=== PATIENT | female | born 1955 | race Caucasian/White ===

== ENCOUNTER → 2017-01-04 | Outpatient (CLI) | payer BC ==
--- NOTE | 2017-01-04 15:15 | BD ---
EXAMINATION TYPE: MG DEXA axial skeleton. DATE OF EXAM: 01/04/2017 COMPARISON: NONE CLINICAL HISTORY: M89.9 Disorder of bone Height: 60 IN Weight: 141 LBS FRAX RISK QUESTIONS: Alcohol (3 or more units per day): NO Family History (Parent hip fracture): NO Glucocorticoids (More than 3mos): NO (Ex: prednisone, prednisolone, methylprednisolone, dexamethasone, and hydrocortisone). History of Fracture in Adulthood: NO Secondary Osteoporosis: 1. Type 1 Diabetes: NO 2. Hyperthyroidism: NO 3. Menopause before 45: NO 4. Malnutrition: NO 5. Chronic liver disease: NO Rheumatoid Arthritis: NO Current Tobacco Use: NO RISK FACTORS HISTORY OF: Surgery to Hip(left): YES When: 2010 Active: YES Postmenopausal woman: AGE 52 MEDICATIONS: Additional Medications: CALCIUM, VIT D, PRILOSEC, POTASSIUM, DONNIE 128,TRAMADOL, AMOXICILLIN, LODINE, LASIX, PVC MEDICATION, LIPITOR EXAM MEASUREMENTS: Bone mineral densitometry was performed using the [email or web address] System. Bone mineral density as measured about the Lumbar spine is: ----- L1-L4(G/cm2): 1.057 T Score Values are as follows: ----- L2: -1.1 ----- L3: -1.3 ----- L4: -1.4 ----- L1-L4: -1.0 Bone mineral density has: Decreased -0.2% since study of: 04/03/2014 Bone mineral density about the R hip (g/cm2): 0.779 T Score values are as follows: -----R Neck: -1.9 -----R Total: -1.7 Bone mineral density has: Decreased -5.0% since study of: 04/03/2014 IMPRESSION: Osteopenia. NOTE: T-SCORE=SD OF THE YOUNG ADULT MEAN.
--- NOTE | 2017-01-05 11:16 | MM ---
Reason for exam: screening (asymptomatic). Last mammogram was performed 1 year and 1 month ago. History: Patient is postmenopausal and had first child at age 35. Physical Findings: A clinical breast exam by your physician is recommended on an annual basis and results should be correlated with mammographic findings. MG 3D Screening Mammo W/Cad Bilateral CC and MLO view(s) were taken. Prior study comparison: December 14, 2015, bilateral MG 3d screening mammo w/cad. April 03, 2014, bilateral MG screening mammo w CAD. The breast tissue is heterogeneously dense. This may lower the sensitivity of mammography. There is no discrete abnormality. ASSESSMENT: Negative, BI-RAD 1 RECOMMENDATION: Routine screening mammogram of both breasts in 1 year.
== END | disposition home or self-care (01) ==
LOC: RADBDWWP 14:26
PROVIDERS: ATTEND Obstetrics & Gynecology
DX: Z12.31 Encounter for screening mammogram for malignant neoplasm of breast (principal); M85.88 Other specified disorders of bone density and structure, other site
CPT/HCPCS: 77080; 77063; G0202

== ENCOUNTER → 2018-02-01 | Outpatient (CLI) | payer BC ==
--- NOTE | 2018-02-05 08:55 | MM ---
Reason for exam: screening (asymptomatic). Last mammogram was performed 1 year and 1 month ago. History: Patient is postmenopausal and had first child at age 35. Physical Findings: A clinical breast exam by your physician is recommended on an annual basis and results should be correlated with mammographic findings. MG 3D Screening Mammo W/Cad Bilateral CC and MLO view(s) were taken. Prior study comparison: January 04, 2017, bilateral MG 3d screening mammo w/cad. December 14, 2015, bilateral MG 3d screening mammo w/cad. The breast tissue is heterogeneously dense. This may lower the sensitivity of mammography. No significant changes when compared with prior studies. ASSESSMENT: Benign, BI-RAD 2 RECOMMENDATION: Routine screening mammogram of both breasts in 1 year.
== END | disposition home or self-care (01) ==
LOC: RADMAMWWP 13:03
PROVIDERS: ATTEND Obstetrics & Gynecology
DX: Z12.31 Encounter for screening mammogram for malignant neoplasm of breast (principal)
CPT/HCPCS: 77063; 77067

== ENCOUNTER → 2018-07-04 | Outpatient (CLI) | payer OTHER ==
[2018-07-04 08:45] LABS: HCT 37.5 % (34.0-46.0); HGB 12.7 gm/dL (11.4-16.0); MCH 31.8 pg (25.0-35.0); MCHC 33.8 g/dL (31.0-37.0); Mean Platelet Volume 8.1; Platelet Count 180 k/uL (150-450); RBC 3.99 m/uL (3.80-5.40); RDW 13.5 % (11.5-15.5); WBC 6.9 k/uL (3.8-10.6)
[2018-07-04 08:48] LABS: INR 0.9 (<1.2)
[2018-07-04 08:57] LABS: Anion Gap 8 mmol/L; Blood Urea Nitrogen 28 mg/dL (7-17); Calcium 9.3 mg/dL (8.4-10.2); Carbon Dioxide 26 mmol/L (22-30); Chloride 106 mmol/L (98-107); Glucose 155 mg/dL (74-99); Potassium 3.7 mmol/L (3.5-5.1); Sodium 140 mmol/L (137-145)
== END | disposition home or self-care (01) ==
LOC: LABWHC1 08:07
PROVIDERS: ATTEND Internal Medicine
DX: I49.3 Ventricular premature depolarization (principal)
CPT/HCPCS: 36415; 80048; 85027; 85610

== ENCOUNTER 2018-12-21 07:58 | Day surgery (SDC) | payer OTHER ==
[2018-12-18 09:31] VITALS: BMI 25.4
[~2018-12-21 07:58] MED LIST: LIDOCAINE 1% 20 ML VIAL (10MG/ML) FOR IV START INTRADERMA PRN
[2018-12-21] MEDS: LACTATED RINGERS 1,000 ML IV SCH ×2 (08:15→08:20)
[2018-12-21 08:23] VITALS: RESP 18; TEMP 98.5
[2018-12-21] MEDS ORDERED: LIDOCAINE 1% INJ 10MG/ML (20 ML MDV) ONE (08:57)
[2018-12-21] MEDS ORDERED: PROPOFOL 10 MG/ML 20 ML VIAL IV ONE (08:57)
--- NOTE | 2018-12-21 09:03 | P.GSHP ---
History of Present Illness H&P Date: 12/21/18 Chief Complaint: Change in bowel habits Patient comes a hospital today with complaints of change in bowel habits. Patient states since earlier this year she has been constipated. Require senna twice daily. No rectal bleeding or melena. No pain. Last colonoscopy 2012. Past Medical History Past Medical History: GERD/Reflux, Hyperlipidemia, Hypertension, Osteoarthritis (OA) Additional Past Medical History / Comment(s): MIGRAINES, CATARACTS, CORNEAL DX(FUSCH DZ) History of Any Multi-Drug Resistant Organisms: None Reported Past Surgical History: Joint Replacement Additional Past Surgical History / Comment(s): LEFT HIP REPLACEMENT, PARTIAL THYROIDECTOMY(LT SIDE ) HAD BENIGN TUMOR, ECTOPIC , COLONOSCOPY, Past Anesthesia/Blood Transfusion Reactions: Motion Sickness Smoking Status: Former smoker - Past Family History Father Family Medical History: Cancer Medications and Allergies Home Medications Medication Instructions Recorded Confirmed Type Etodolac [Lodine] 400 mg PO DAILY 10/24/13 12/21/18 History Atorvastatin [Lipitor] 40 mg PO DAILY 12/18/18 12/21/18 History Ergocalciferol (Vitamin D2) 50,000 unit PO Q14D 12/18/18 12/21/18 History [Vitamin D2] Furosemide [Lasix] 40 mg PO DAILY 12/18/18 12/21/18 History Losartan [Cozaar] 50 mg PO DAILY 12/18/18 12/21/18 History Omeprazole 20 mg PO DAILY 12/18/18 12/21/18 History Potassium Chloride 10 meq PO DAILY 12/18/18 12/21/18 History Sennosides/Docusate Sodium 1 - 2 cap PO DAILY 12/18/18 12/21/18 History [Senna-S Laxative Tablet] Verapamil HCl [Verapamil ER] 120 mg PO DAILY 12/18/18 12/21/18 History Allergies Allergy/AdvReac Type Severity Reaction Status Date / Time amlodipine besylate Allergy Swelling Verified 12/21/18 08:10 [From Norvasc] methylprednisolone Allergy Unknown Verified 12/21/18 08:10 [From Medrol] Sulfa (Sulfonamide Allergy Swelling Verified 12/21/18 08:10 Antibiotics) Surgical - Exam Vital Signs Temp Pulse Resp BP Pulse Ox 98.5 F 80 18 149/69 96 12/21/18 08:20 12/21/18 08:20 12/21/18 08:20 12/21/18 08:20 12/21/18 08:20 Physical exam: General: Well-developed, well-nourished HEENT: Normocephalic, sclerae nonicteric Abdomen: Nontender, nondistended Extremities: No edema Neuro: Alert and oriented Assessment and Plan (1) Change in bowel habits Narrative/Plan: Will proceed with colonoscopy at this time. Current Visit: Yes Status: Acute Code(s): R19.4 - CHANGE IN BOWEL HABIT SNOMED Code(s): 955864365
--- NOTE | 2018-12-21 09:23 | P.PCN ---
Date of Procedure: 12/21/18 Procedure(s) Performed: PREOPERATIVE DIAGNOSIS: Change in bowel habits POSTOPERATIVE DIAGNOSIS: Suboptimal prep, diverticulosis PROCEDURE: Colonoscopy ANESTHESIA: MAC SURGEON: Carmelo Berry M.D. SPECIMENS: None ENDOSCOPIC PROCEDURE: The patient was placed on the endoscopy table in the left decubitus position. The Olympus colonoscope was inserted into the anus and passed under direct visualization to the base of the cecum. The appendiceal orifice was visualized. From that point the scope was slowly withdrawn inspecting all surfaces carefully. There were no neoplastic inflammatory or polypoid lesions throughout the cecum, ascending, transverse, descending, sigmoid and rectum. There was mild left-sided diverticulosis noted. The patient's prep was somewhat suboptimal with retained liquid stool containing into particulate matter that we could not clear all of the visualized stool. Portions of the mucosal surfaces were not well seen. Digital rectal examination was normal. The patient was taken to the recovery room in stable condition per anesthesia guidelines. RECOMMENDATIONS: Increase fiber. Follow-up colonoscopy in 10 years.
[2018-12-21 09:44] VITALS: BP 145/83; PULSE 60
== END 2018-12-21 09:58 | disposition home or self-care (01) ==
LOC: ORWHC2ENDO 07:58
PROVIDERS: ATTEND Surgery
DX: K57.30 Diverticulosis of large intestine without perforation or abscess without bleeding (principal); I10 Essential (primary) hypertension; E78.5 Hyperlipidemia, unspecified; K21.9 Gastro-esophageal reflux disease without esophagitis; G43.909 Migraine, unspecified, not intractable, without status migrainosus; M19.90 Unspecified osteoarthritis, unspecified site; E89.0 Postprocedural hypothyroidism; H26.9 Unspecified cataract; H18.51 Endothelial corneal dystrophy; Z87.891 Personal history of nicotine dependence; Z79.1 Long term (current) use of non-steroidal anti-inflammatories (NSAID); Z79.899 Other long term (current) drug therapy; Z96.642 Presence of left artificial hip joint; Z88.2 Allergy status to sulfonamides; Z88.8 Allergy status to other drugs, medicaments and biological substances; Z86.018 Personal history of other benign neoplasm; Z98.890 Other specified postprocedural states; Z80.9 Family history of malignant neoplasm, unspecified
CPT/HCPCS: 45378; J2001; J2704

== ENCOUNTER → 2019-02-07 | Outpatient (CLI) | payer OTHER ==
--- NOTE | 2019-02-07 16:11 | US ---
EXAMINATION TYPE: US transvaginal DATE OF EXAM: 02/07/2019 COMPARISON: NONE CLINICAL HISTORY: N81.4 Uterovaginal prolapse, unspecified. TECHNIQUE: TV ordered tv only. Date of LMP: age 53 EXAM MEASUREMENTS: Uterus: 4.1 x1.9 x3.3 cm Endometrial Stripe: 0.2 cm Right Ovary: overlying bowel gas Left Ovary: overlying bowel gas 1. Uterus: anteverted 2. Endometrium: wnl 3. Right Ovary: overlying bowel gas 4. Left Ovary: overlying bowel gas 5. Bilateral Adnexa: overlying bowel gas 6. Posterior cul-de-sac: small amount fluid IMPRESSION: Ovaries are not seen, partially due to overlying bowel gas and likely partially related t o atrophy. Endometrium is within normal limits. Uterine prolapse and not discernible on this transvag inal technique. Trace amount of free fluid is likely physiologic.
== END | disposition home or self-care (01) ==
LOC: RADUSWWP 15:31
PROVIDERS: ATTEND Obstetrics & Gynecology
DX: N81.4 Uterovaginal prolapse, unspecified (principal)
CPT/HCPCS: 76830

== ENCOUNTER → 2019-03-29 | Outpatient (CLI) | payer OTHER ==
[2019-03-29 14:15] LABS: Basophils % (A) 1 %; Eosinophils # (A) 0.2 k/uL (0-0.7); Eosinophils % (A) 3 %; HCT 39.1 % (34.0-46.0); HGB 12.9 gm/dL (11.4-16.0); Lymphocytes # (A) 1.1 k/uL (1.0-4.8); Lymphocytes % (A) 23 %; MCH 30.4 pg (25.0-35.0); Mean Platelet Volume 7.7; Monocytes # (A) 0.2 k/uL (0-1.0); Monocytes % (A) 5 %; Neutrophils # (A) 3.1 k/uL (1.3-7.7); Neutrophils % (A) 66 %; Platelet Count 180 k/uL (150-450); RBC 4.25 m/uL (3.80-5.40); WBC 4.8 k/uL (3.8-10.6)
[2019-03-29 14:31] LABS: African American GFR (CKD) >90 (>60 ml/min/1.73 sqM); Anion Gap 6 mmol/L; Blood Urea Nitrogen 21 mg/dL (7-17); Calcium 9.6 mg/dL (8.4-10.2); Carbon Dioxide 30 mmol/L (22-30); Chloride 104 mmol/L (98-107); Glucose 164 mg/dL (74-99); Non-African American GFR(CKD) >90 (>60 ml/min/1.73 sqM); Potassium 3.7 mmol/L (3.5-5.1); Sodium 140 mmol/L (137-145)
== END | disposition home or self-care (01) ==
LOC: LABPAT 12:38
PROVIDERS: ATTEND Obstetrics & Gynecology
DX: Z01.812 Encounter for preprocedural laboratory examination (principal)
CPT/HCPCS: 80048; 85025; 93005

== ENCOUNTER 2019-04-08 05:38 | Inpatient (IN) | payer OTHER ==
[2019-04-03 15:27] VITALS: BMI 25.6
--- NOTE | 2019-04-07 17:19 | P.HPOB ---
History of Present Illness H&P Date: 04/07/19 Chief Complaint: Uterovaginal prolapse This is a 63 y.o. female, 3, para 1, who presents for total vaginal hysterectomy with anterior and posterior vaginal colporrhaphy for symptomatic uterine prolapse with cystocele and rectocele. She has been evaluated by urology and it was determined that she does not need a sling. She complains of vaginal and perineal pressure, urinary hesitancy and pelvic pain. She has been using a pessary, but does experience some leakage with it in. She also notices some constipation. Her symptoms are exacerbated by heavy lifting and prolonged standing. She wants definitive surgical treatment. OB Hx: . History of 1 vaginal delivery, 1 ectopic , and 1 miscarriage. Wet Finisher Hx: No history of STDs. 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 Review of Systems Constitutional: Denies chills, Denies fever Eyes: denies blurred vision, denies pain Ears: bilateral: decreased hearing Ears, nose, mouth and throat: Denies headache, Denies sore throat Cardiovascular: Reports palpitations (Occ) Respiratory: Denies cough Gastrointestinal: Denies abdominal pain, Denies diarrhea, Denies nausea, Denies vomiting Genitourinary: Reports dysuria, Reports pelvic pain, Reports prolapse symptoms, Reports urgency Menstruation: Reports postmenopausal Musculoskeletal: Reports low back pain, Reports myalgias Integumentary: Denies pruritus, Denies rash Neurological: Denies numbness, Denies weakness Endocrine: Reports flushing, Denies fatigue, Denies weight change Past Medical History Past Medical History: Eye Disorder, GERD/Reflux, Hyperlipidemia, Hypertension, Osteoarthritis (OA) Additional Past Medical History / Comment(s): PAST HX MIGRAINES, MELIZA CATARACTS, CORNEAL DX (FUSCH DYSTROPHY) hx of PVC's History of Any Multi-Drug Resistant Organisms: None Reported Past Surgical History: Cardiac Ablation, Joint Replacement Additional Past Surgical History / Comment(s): states cardiac ablation failed for PVC's,LEFT HIP REPLACEMENT, PARTIAL THYROIDECTOMY(LT SIDE) r/t BENIGN TUMOR, ECTOPIC , COLONOSCOPY, Past Anesthesia/Blood Transfusion Reactions: No Reported Reaction Past Psychological History: No Psychological Hx Reported Smoking Status: Former smoker Past Alcohol Use History: Occasional Past Drug Use History: None Reported - Past Family History Father Family Medical History: Cancer Medications and Allergies Home Medications Medication Instructions Recorded Confirmed Type Etodolac [Lodine] 400 mg PO DAILY 10/24/13 04/08/19 History Atorvastatin [Lipitor] 40 mg PO DAILY 12/18/18 04/08/19 History Ergocalciferol (Vitamin D2) 50,000 unit PO Q14D 12/18/18 04/08/19 History [Vitamin D2] Furosemide [Lasix] 40 mg PO DAILY 12/18/18 04/08/19 History Losartan [Cozaar] 50 mg PO QAM 12/18/18 04/08/19 History Omeprazole 20 mg PO DAILY 12/18/18 04/08/19 History Potassium Chloride 20 meq PO DAILY 12/18/18 04/08/19 History Sennosides/Docusate Sodium 1 - 2 cap PO DAILY PRN 12/18/18 04/08/19 History [Senna-S Laxative Tablet] Verapamil HCl [Verapamil ER] 120 mg PO HS 12/18/18 04/08/19 History Allergies Allergy/AdvReac Type Severity Reaction Status Date / Time amlodipine besylate Allergy Swelling Verified 04/08/19 06:27 [From Norvasc] methylprednisolone Allergy Unknown Verified 04/08/19 06:27 [From Medrol] Sulfa (Sulfonamide Allergy Swelling Verified 04/08/19 06:27 Antibiotics) Exam Osteopathic Statement: *. No significant issues noted on an osteopathic structural exam other than those noted in the History and Physical/Consult. HEENT: within normal limits Heart: regular rate and rhythm Lungs: clear to auscultation bilateral Abdomen: soft, non-tender Pelvic: uterus midposition with complete eversion, protruding out of the vagina slightly. Grade 3 cystocele and grade 2 rectocele is noted. Extremities: negative Homans. Results Comments: Pelvic US showed uterus measuring 4.1 x 9 x 3.3 cm with endometrial stripe of 0.2 cm. Neither ovary is visualized. Assessment and Plan (1) Complete uterine prolapse with prolapse of anterior vaginal wall Current Visit: No Status: Acute Code(s): N81.3 - COMPLETE UTEROVAGINAL PROLAPSE SNOMED Code(s): 820918563 (2) Rectocele Current Visit: No Status: Acute Code(s): N81.6 - RECTOCELE SNOMED Code(s): 701108429 Plan: Proceed with total vaginal hysterectomy with anterior and posterior vaginal colporrhaphy, possible total abdominal hysterectomy with bilateral salpingooophorectomy. I have discussed the risks, benefits, and alternative therapies for the above- mentioned procedure and for both sedation/anesthesia as well as necessary blood products administration, if indicated, as they pertain to this patient. The patient has indicated her understanding and acceptance of the risks and procedures discussed.
[2019-04-08] MEDS ORDERED: LIDOCAINE 1% 20 ML VIAL (10MG/ML) FOR IV START INTRADERMA PRN (05:56)
[2019-04-08] MEDS ORDERED: SCOPOLAMINE 1.5MG/72HR PATCH TRANSDERM ONE (05:56)
[2019-04-08] MEDS ORDERED: HYDROmorphone 0.5 MG/0.5 ML SYRINGE IVP PRN (05:56)
[2019-04-08 06:45] LABS: Glucose,Whole Blood 100 mg/dL (75-99)
[2019-04-08] MEDS: LACTATED RINGERS 1,000 ML IV SCH ×2 (06:50→10:51)
[2019-04-08] MEDS: ONDANSETRON 4 MG/2 ML VIAL IVP ONE ×2 (06:52→09:55)
[2019-04-08] MEDS ORDERED: MORPHINE SULFATE (PF) 0.3 MG/0.3 ML SYR ONE (07:32)
[2019-04-08] MEDS ORDERED: LIDOCAINE 1% INJ 10MG/ML (20 ML MDV) ONE (07:32)
[2019-04-08] MEDS ORDERED: PROPOFOL 10 MG/ML 20 ML VIAL IV ONE (07:32)
[2019-04-08] MEDS ORDERED: MIDAZOLAM 2 MG/2 ML VIAL ONE (07:32)
[2019-04-08] MEDS ORDERED: fentaNYL (PF) 50 MCG/ML 2 ML AMP ONE (07:32)
[2019-04-08] MEDS ORDERED: NALBUPHINE 10 MG/ML (1 ML AMP) IV PRN (08:04)
[2019-04-08] MEDS ORDERED: MORPHINE SULFATE 4 MG/ML SYRINGE IVP PRN (08:04)
[2019-04-08] MEDS ORDERED: diphenhydrAMINE 50 MG/ML 1 ML VIAL IVP PRN ×2 (08:04→10:39)
[2019-04-08] MEDS ORDERED: NALOXONE 0.4 MG/ML 1 ML VIAL IV PRN (08:04)
[2019-04-08] MEDS ORDERED: BACITRACIN 500 UNIT/GM OINT 28.4 GM TUBE TOPICAL ONE (08:10)
[2019-04-08] MEDS ORDERED: EPINEPHrine 1 MG/ML 1 ML AMP IV ONE ×2 (08:11→08:50)
[2019-04-08] MEDS ORDERED: LACTATED RINGERS 1,000 ML IV ONE ×2 (08:26)
--- NOTE | 2019-04-08 08:59 | P.OP ---
Date of Procedure: 04/08/19 Preoperative Diagnosis: Uterine prolapse with cystocele and rectocele Postoperative Diagnosis: Same Procedure(s) Performed: Total vaginal hysterectomy with anterior and posterior vaginal colporrhaphy Anesthesia: spinal (Duramorph) Surgeon: Gerda Hartley Pressurizer #1: Dane Abarca Estimated Blood Loss (ml): 20 Pathology: other (Uterus with cervix, vaginal mucosa) Condition: stable Disposition: floor Indications for Procedure: This is a 63 y.o. female, 3, para 1, who presents for total vaginal hysterectomy with anterior and posterior vaginal colporrhaphy for symptomatic uterine prolapse with cystocele and rectocele. She has been evaluated by urology and it was determined that she does not need a sling. She complains of vaginal and perineal pressure, urinary hesitancy and pelvic pain. She has been using a pessary, but does experience some leakage with it in. She also notices some constipation. Her symptoms are exacerbated by heavy lifting and prolonged standing. She wants definitive surgical treatment. Operative Findings: Grade 3 uterine prolapse and cystocele are noted. Grade 2 rectocele is noted. Description of Procedure: The patient is taken the operating room where she is placed in the dorsal lithotomy position. She is prepped and draped in the normal sterile fashion. Next a weighted speculum was placed in the patient's vagina and a right angle retractor was used to visualize the cervix. The anterior lip of the cervix is grasped with a single-tooth tenaculum. Next the cervix was circumferentially injected with one amp of epinephrine to 150 mL of normal saline. Next the cervix was circumscribed with a scalpel. The vaginal mucosa was pushed away from the cervix with a sponge. Next the uterosacral ligaments are clamped on either side with a Jacky clamp, cut with Galo scissors, and then sutured with 0 Vicryl suture in a Jacky transfixion stitch and then held on either side with a straight hemostat. Next the posterior peritoneal reflection was identified and entered sharply with Galo scissors. The edges of the vaginal mucosa was then tagged with 0 Vicryl suture and held with a curved hemostat for identification. Next a longbilled weighted speculum was placed through the posterior peritoneal reflection. Next the cardinal ligaments were clamped on either side with Jacky clamps, cut with Galo scissors, and then sutured with 0 Vicryl suture in Jacky transfixion stitches and cut. Next the vesicouterine peritoneum reflection is identified and entered sharply with Metzenbaum scissors. A right angle bladder retractor is then used to retract the bladder. The uterine arteries are clamped on either side with Jacky clamps, cut with Galo scissors, and then sutured with 0 Vicryl suture in Jacky transfixion stitches. The round ligament is also clamped on either side with a Jacky clamp, cut with Galo scissors, and sutured with 0 Vicryl suture in Jacky transfixion stitches. Next the uterine ovarian ligament and tube were clamped on either side with a Jacky clamp, cut with Galo scissors, and then sutured with 0 Vicryl suture in a [id number] stitch, flashed, and then free tied with another suture of 0 Vicryl suture. These pedicles were held with a straight Dai for identification. The uterus is removed from the field. Excellent hemostasis is noted. Next the peritoneum is closed with 0 Vicryl suture in a pursestring fashion incorporating all the held ligaments. Neither ovary was visualized prior to closing the vaginal cuff area. Both tubes are visualized and appeared normal. Next the uterine ovarian ligame nts are tied together in the middle and cut. Next attention was turned to the cystocele repair. The edges of the vaginal mucosa are held with 2 Allis clamps. Next injection of the same epinephrine solution is injected underneath the mucosa upwards towards the urethra. Metzenbaum scissors were used to dissect underneath the vaginal mucosa and cut along the way up to just below the urethra. Sharp and blunt dissection are used to dissect the bladder away from the vaginal mucosa. Once the bladder is freed, the cystocele is reduced with 0 Vicryl suture in [id number] stitches on either side of the cystocele. Next the edges of the vaginal mucosa are trimmed with Metzenbaum scissors. Next the vaginal mucosa is sutured with 0 Vicryl suture in a running locked fashion incorporating the vaginal cuff. The uterosacral ligaments were also tied together in the midline prior to completely closing the vaginal cuff. Excellent hemostasis is noted. Next attention was turned to the posterior repair. 2 Allis clamps are used to grasp the introitus at the 4 and 8 o'clock position. Next the same injection solution of epinephrine was injected underneath the vaginal mucosa upwards towards the vaginal cuff. The scalpel was used to incise a triangle her piece of perineum mucosa between the 2 Allis clamps. Next Metzenbaum scissors were used to dissect underneath the vaginal mucosa upwards towards the vaginal cuff. The rectocele was then freed from the vaginal mucosa with sharp and blunt dissection. The rectocele was then reduced with 0 Vicryl suture in interrupted [id number] stitches. Next the edges of the vaginal mucosa are trimmed. The vaginal mucosa was then sutured with 0 Vicryl suture in a running locked fashion up to the introitus and then brought underneath the sk in and a whipped fashion to the apex on the perineum and then in a subcuticular fashion on the perineum all the way up to the introitus and tied. The Cueto catheter is inserted and clear urine is noted. Next the vagina is packed with one-inch iodoform gauze with bacitracin ointment. All sponge and needle counts are correct and the patient is then taken to recovery room in stable condition.
[2019-04-08] MEDS: KETOROLAC 30 MG/ML 1 ML VIAL IVP PRN ×2 (09:18→16:19)
[2019-04-08] MEDS ORDERED: ZOLPIDEM 5 MG TAB PO PRN (10:39)
[2019-04-08] MEDS ORDERED: SIMETHICONE 80 MG CHEWABLE PO PRN (10:39)
[2019-04-08] MEDS ORDERED: ONDANSETRON 4 MG/2 ML VIAL IVP PRN (10:39)
[2019-04-08] MEDS ORDERED: IBUPROFEN 600 MG TAB PO PRN (10:39)
[2019-04-08] MEDS: ATORVASTATIN 40 MG TAB PO SCH (11:44)
[2019-04-08] MEDS: LOSARTAN 50 MG TAB PO SCH (11:45)
[2019-04-08] MEDS: POTASSIUM CHLORIDE ER 20 MEQ TAB.ER PO SCH (11:45)
[2019-04-08] MEDS: FUROSEMIDE 40 MG TAB PO SCH (11:45)
[2019-04-08] MEDS: PANTOPRAZOLE 40 MG TABLET PO SCH (11:45)
[2019-04-08] MEDS: SENNOSIDES-DOCUSATE SODIUM 1 EACH TAB PO SCH ×2 (11:46→19:55)
[2019-04-08] MEDS: METOCLOPRAMIDE 5 MG/ML 2 ML VIAL IVP PRN ×2 (11:59→19:55)
[2019-04-08] MEDS ORDERED: VERAPAMIL SR 120 MG TABLET.ER PO SCH (21:00)
[2019-04-09] MEDS: KETOROLAC 30 MG/ML 1 ML VIAL IVP PRN ×2 (02:56→08:56)
[2019-04-09] MEDS ORDERED: ACETAMINOPHEN TAB 325 MG TAB PO PRN (07:40)
[2019-04-09 08:04] LABS: Basophils % (A) 1 %; Eosinophils # (A) 0.1 k/uL (0-0.7); Eosinophils % (A) 2 %; HCT 32.2 % (34.0-46.0); HGB 10.6 gm/dL (11.4-16.0); Lymphocytes # (A) 1.6 k/uL (1.0-4.8); Lymphocytes % (A) 24 %; MCH 31.3 pg (25.0-35.0); MCHC 33.1 g/dL (31.0-37.0); MCV 94.8 fL (80.0-100.0); Mean Platelet Volume 8.3; Monocytes # (A) 0.3 k/uL (0-1.0); Monocytes % (A) 4 %; Neutrophils # (A) 4.7 k/uL (1.3-7.7); Neutrophils % (A) 68 %; Platelet Count 142 k/uL (150-450); RDW 13.2 % (11.5-15.5); WBC 6.8 k/uL (3.8-10.6)
[2019-04-09] MEDS: LOSARTAN 50 MG TAB PO SCH (08:18)
[2019-04-09] MEDS: FUROSEMIDE 40 MG TAB PO SCH (08:18)
[2019-04-09] MEDS: PANTOPRAZOLE 40 MG TABLET PO SCH (08:41)
[2019-04-09] MEDS: ATORVASTATIN 40 MG TAB PO SCH (08:41)
[2019-04-09] MEDS: POTASSIUM CHLORIDE ER 20 MEQ TAB.ER PO SCH (08:41)
[2019-04-09] MEDS: SENNOSIDES-DOCUSATE SODIUM 1 EACH TAB PO SCH (08:55)
--- NOTE | 2019-04-09 08:59 | P.DS ---
Providers Date of admission: 04/08/19 05:38 Expected date of discharge: 04/09/19 Attending physician: Gerda Hartley Primary care physician: Robert Urrutia - Discharge Diagnosis(es) (1) Complete uterine prolapse with prolapse of anterior vaginal wall Current Visit: No Status: Acute (2) Rectocele Current Visit: No Status: Acute Hospital Course: This is a 63-year-old female who underwent a total vaginal hysterectomy with anterior and posterior vaginal colporrhaphy due to uterine prolapse with cystocele and rectocele. Postoperatively she has done well. She did have some nausea and vomiting the first postoperative day but now is better. She is tolerating regular diet. She is passing flatus. She has urinated and 6 At her was removed. Pain is fairly well controlled with Toradol. She has minimal bleeding. She complains more of joint pain and then her surgical pain. Vital signs are stable. Abdomen is soft with positive bowel sounds 4. Loraine-pad shows scant serosanguineous discharge. Extremities show negative Homans. Impression is status post total vaginal hysterectomy with anterior and posterior vaginal colporrhaphy postoperative day #1. Plan is to discharge home later today. Will remove IV and switched oral ibuprofen and Tylenol as needed. She is advised to follow up in the office in 1-1/2 weeks. She is advised to call the office if she has any further questions or concerns prior to her appointment time. She is advised no lifting, tub baths, or driving. She may shower. She will be given a prescription for ibuprofen 600 mg every 6 hours as needed for pain. She is advised not to combine this with any other NSAIDs at home. Procedures: Total vaginal hysterectomy with anterior and posterior vaginal colporrhaphy on 04/08/2019 Patient Condition at Discharge: Stable Plan - Discharge Summary Discharge Rx Participant: No New Discharge Prescriptions: New Ibuprofen [Motrin] 600 mg PO Q6HR PRN #60 tab PRN Reason: Mild Discomfort Acetaminophen Tab [Tylenol] 650 mg PO Q6HR PRN tab PRN Reason: Fever And/Or Mild Pain No Action Etodolac [Lodine] 400 mg PO DAILY Losartan [Cozaar] 50 mg PO QAM Atorvastatin [Lipitor] 40 mg PO DAILY Verapamil HCl [Verapamil ER] 120 mg PO HS Sennosides/Docusate Sodium [Senna-S Laxative Tablet] 1 - 2 cap PO DAILY PRN PRN Reason: Constipation Potassium Chloride 20 meq PO DAILY Omeprazole 20 mg PO DAILY Furosemide [Lasix] 40 mg PO DAILY Ergocalciferol (Vitamin D2) [Vitamin D2] 50,000 unit PO Q14D Discharge Medication List Etodolac [Lodine] 400 mg PO DAILY 10/24/13 [History] Atorvastatin [Lipitor] 40 mg PO DAILY 12/18/18 [History] Ergocalciferol (Vitamin D2) [Vitamin D2] 50,000 unit PO Q14D 12/18/18 [History] Furosemide [Lasix] 40 mg PO DAILY 12/18/18 [History] Losartan [Cozaar] 50 mg PO QAM 12/18/18 [History] Omeprazole 20 mg PO DAILY 12/18/18 [History] Potassium Chloride 20 meq PO DAILY 12/18/18 [History] Sennosides/Docusate Sodium [Senna-S Laxative Tablet] 1 - 2 cap PO DAILY PRN 12/18/18 [History] Verapamil HCl [Verapamil ER] 120 mg PO HS 12/18/18 [History] Acetaminophen Tab [Tylenol] 650 mg PO Q6HR PRN tab 04/09/19 [Rx] Ibuprofen [Motrin] 600 mg PO Q6HR PRN #60 tab 04/09/19 [Rx] Follow up Appointment(s)/Referral(s): Gerda Hartley DO [Doctor of Osteopathic Medicine] - 10 Days Patient Instructions/Handouts: Ketorolac (By injection), Pain Management After Surgery (GEN), Vaginal Hysterectomy (DC) Activity/Diet/Wound Care/Special Instructions: activity as tolerated. May shower, but no tub baths. No heavy lifting. No driving for approximately 1 week. Discharge Disposition: HOME SELF-CARE
--- NOTE | 2019-04-09 12:22 | P.PN ---
Progress Note - Text Anesthesia POD1. Patient is status post vaginal hysterectomy under spinal with intra-thecal preservative free morphine 300 g. minimal pruritus, excellent post-op analgesia, and no headache or other complication.
[2019-04-09 12:45] VITALS: BP 98/61; PULSE 66; RESP 16; TEMP 98.7
== END 2019-04-09 13:42 | disposition home or self-care (01) | DRG 743 ==
LOC: 2ORMAIN 05:38 → 6PED 09:20
PROVIDERS: ADMIT Obstetrics & Gynecology; ATTEND Obstetrics & Gynecology
PROC: 0UTC7ZZ Resection of Cervix, Via Natural or Artificial Opening (ICD-10-PCS; 2019-04-08)
PROC: 0JQC0ZZ Repair Pelvic Region Subcutaneous Tissue and Fascia, Open Approach (ICD-10-PCS; 2019-04-08)
PROC: 0UT97ZZ Resection of Uterus, Via Natural or Artificial Opening (ICD-10-PCS; principal; 2019-04-08 07:30)
PROC: 0JQC0ZZ Repair Pelvic Region Subcutaneous Tissue and Fascia, Open Approach (ICD-10-PCS; 2019-04-08 07:30)
DX: N81.3 Complete uterovaginal prolapse (principal); K59.00 Constipation, unspecified; R39.11 Hesitancy of micturition; E78.5 Hyperlipidemia, unspecified; I10 Essential (primary) hypertension; E89.0 Postprocedural hypothyroidism; K21.9 Gastro-esophageal reflux disease without esophagitis; H26.9 Unspecified cataract; L29.9 Pruritus, unspecified; M19.90 Unspecified osteoarthritis, unspecified site; Z79.899 Other long term (current) drug therapy; Z87.891 Personal history of nicotine dependence; Z96.642 Presence of left artificial hip joint; Z86.69 Personal history of other diseases of the nervous system and sense organs; Z86.79 Personal history of other diseases of the circulatory system; Z98.890 Other specified postprocedural states; Z88.2 Allergy status to sulfonamides; Z88.8 Allergy status to other drugs, medicaments and biological substances; Z80.9 Family history of malignant neoplasm, unspecified
CPT/HCPCS: 36415; 85025; 86850; 86900; 86901; 88305

== ENCOUNTER → 2019-12-24 | Outpatient (CLI) | payer OTHER ==
--- NOTE | 2019-12-24 15:22 | BD ---
EXAMINATION TYPE: Axial Bone Density DATE OF EXAM: 12/24/2019 COMPARISON: 01/04/2017 DEXA bone scan. CLINICAL HISTORY: Postmenopausal female. Height: 60 IN Weight: 141 LBS RISK FACTORS HISTORY OF: Surgery to Hip(left): 2010 Active: YES Postmenopausal woman: AGE 53 MEDICATIONS: Additional Medications: CALCIUM, VIT D, LASIX, LIPITOR, VERAPAMIL,LODINE, POTASSIUM, PRILOSEC, LOSART AN, METAMUCIL, EXAM MEASUREMENTS: Bone mineral densitometry was performed using the [employer]. Bone mineral density as measured about the Lumbar spine is: ----- L1-L4(G/cm2): 1.006 T Score Values are as follows: ----- L2: -0.8 ----- L3: -1.2 ----- L4: -2.1 ----- L1-L4: -1.4 Bone mineral density has: Decreased -1.7% since study of: 01/04/2017 Bone mineral density about the R hip (g/cm2): 0.702 T Score values are as follows: -----R Neck: -2.4 -----R Total: -2.1 Bone mineral density has: Decreased -5.6% since study of: 01/04/2017 IMPRESSION: Osteopenia (T Score between -2.5 and -1) remains present. Bone density decreased are diminished from prior. There remains slightly increased risk of fracture and the patient may be considered for treatment. Re-Screen 2-5 years. NOTE: T-SCORE=SD OF THE YOUNG ADULT MEAN.
--- NOTE | 2019-12-25 12:02 | MM ---
Reason for exam: screening (asymptomatic). Last mammogram was performed 1 year and 11 months ago. History: Patient is postmenopausal and had first child at age 35. Physical Findings: A clinical breast exam by your physician is recommended on an annual basis and results should be correlated with mammographic findings. MG 3D Screening Mammo W/Cad Bilateral CC and MLO view(s) were taken. Prior study comparison: February 01, 2018, bilateral MG 3d screening mammo w/cad. January 04, 2017, bilateral MG 3d screening mammo w/cad. The breast tissue is heterogeneously dense. This may lower the sensitivity of mammography. No significant changes when compared with prior studies. ASSESSMENT: Negative, BI-RAD 1 RECOMMENDATION: Routine screening mammogram of both breasts in 1 year.
== END | disposition home or self-care (01) ==
LOC: RADMAMWWP 13:48
PROVIDERS: ATTEND Obstetrics & Gynecology
DX: Z12.31 Encounter for screening mammogram for malignant neoplasm of breast (principal); M85.80 Other specified disorders of bone density and structure, unspecified site
CPT/HCPCS: 77063; 77067; 77080

== ENCOUNTER → 2020-09-10 | Outpatient (CLI) | payer BC ==
--- NOTE | 2020-09-10 15:59 | CT ---
EXAMINATION TYPE: CT abdomen pelvis w con DATE OF EXAM: 09/10/2020 COMPARISON: 09/10/2016 HISTORY: RLQ pain CT DLP: 508.10 mGycm CONTRAST: CT scan of the abdomen and pelvis is performed with Oral Contrast and with IV Contrast, patient injec fan with 100 mL of Isovue 300. FINDINGS: LUNG BASES-: No visible nodule. No infiltrate. LIVER/GB: No calcified gallstones. No space occupying hepatic lesion. Biliary tree is of normal ca liber. PANCREAS: No inflammation. No distinct mass. SPLEEN: No splenic enlargement. No lesion seen. ADRENALS: No nodule. No thickening. KIDNEYS/BLADDER: No hydronephrosis. No nephrolithiasis. No distinct renal mass. Urinary bladder g rossly unremarkable. BOWEL: Normal appendix. Normal bowel caliber. No inflammation. Moderately severe fecal stasis withi n the colon. GENITAL ORGANS: No gross abnormality. LYMPH NODES: No greater than 1cm abdominal or pelvic lymph nodes are appreciated. AORTA: No significant abnormality. OSSEOUS STRUCTURES: No significant abnormality is seen. OTHER: No significant additional abnormality is seen. IMPRESSION: 1. Moderately severe fecal stasis within the colon.
== END | disposition home or self-care (01) ==
LOC: RADCTMAIN 13:42
PROVIDERS: ATTEND Family Medicine
DX: K59.89 Other specified functional intestinal disorders (principal)
CPT/HCPCS: 74177; Q9967

== ENCOUNTER → 2021-02-24 | Outpatient (CLI) | payer BC ==
--- NOTE | 2021-02-25 10:41 | MM ---
Reason for exam: screening (asymptomatic). Last mammogram was performed 1 year and 2 months ago. History: Patient is postmenopausal and had first child at age 35. Physical Findings: A clinical breast exam by your physician is recommended on an annual basis and results should be correlated with mammographic findings. MG 3D Screening Mammo W/Cad Bilateral CC and MLO view(s) were taken. Prior study comparison: December 24, 2019, bilateral MG 3d screening mammo w/cad. February 01, 2018, bilateral MG 3d screening mammo w/cad. The breast tissue is heterogeneously dense. This may lower the sensitivity of mammography. There is no discrete abnormality. ASSESSMENT: Negative, BI-RAD 1 RECOMMENDATION: Routine screening mammogram of both breasts in 1 year.
== END | disposition home or self-care (01) ==
LOC: RADMAMWWP 08:28
PROVIDERS: ATTEND Obstetrics & Gynecology
DX: Z12.31 Encounter for screening mammogram for malignant neoplasm of breast (principal); Z78.0 Asymptomatic menopausal state
CPT/HCPCS: 77063; 77067

== ENCOUNTER 2021-08-27 11:00 | Day surgery (SDC) | payer BC, MEDICARE ==
[2021-08-26 10:31] VITALS: BMI 27.3
[~2021-08-27 11:00] MED LIST changes: +LACTATED RINGERS 1,000 ML IV SCH; -LIDOCAINE 1% 20 ML VIAL (10MG/ML) FOR IV START INTRADERMA PRN
[2021-08-27 11:49] VITALS: RESP 16; TEMP 97.2
[2021-08-27 12:00] LABS: Glucose,Whole Blood 100 mg/dL (75-99)
[2021-08-27] MEDS ORDERED: PROPOFOL 10 MG/ML 20 ML VIAL IV ONE (13:11)
[2021-08-27] MEDS ORDERED: LIDOCAINE 2% INJ 20 MG/ML (2 ML VIAL) ONE (13:11)
--- NOTE | 2021-08-27 13:28 | P.PCN ---
Date of Procedure: 08/27/21 Procedure(s) Performed: BRIEF HISTORY: Patient is a 66-year-old, pleasant, white female scheduled for an upper endoscopy with a possible dilation as a part of evaluation of GERD and intermittent dysphagia to solids. She is presently on Prilosec 20 mg twice daily and symptoms are gradually improving.. PROCEDURE PERFORMED: Esophagogastroduodenoscop with biopsy y. PREOPERATIVE DIAGNOSIS: GERD and intermittent dysphagia to solids. IV sedation per anesthesia. PROCEDURE: After informed consent was obtained, the patient was brought into the endoscopy unit. IV sedation was administered by Anesthesia under continuous monitoring. Initially the Olympus GIF-140 video endoscope was inserted into the mouth. Esophagus intubated without any difficulty. It was gradually advanced into the stomach and duodenum and carefully examined. The bulb and the second part of the duodenum appeared normal. The scope at this time was withdrawn to the stomach, adequately insufflated with air, and upon careful examination, mucosa of the antrum and mild gastritis and biopsies were done from this area. The, body, cardia and the fundus appeared normal. The scope was then withdrawn into the esophagus. The GE junction was located at 35 cm from the incisors. There was a small hiatal hernia noted. The esophagus appeared normal. There were no erosions or ulcerations seen, no evidence of esophageal stricture. Biopsies were done from the mid and distal esophagus and the patient tolerated the procedure well. IMPRESSION: 1. Small hiatal hernia but no evidence of esophagitis or esophageal stricture. 2. Mild antral gastritis. RECOMMENDATIONS: The findings of this examination were discussed with the patient is a family. She was advised to follow with the biopsy results. She will continue with omeprazole 20 mg twice daily and continue to follow antireflux measures..
[2021-08-27 13:57] VITALS: BP 141/78; PULSE 61
== END 2021-08-27 14:30 | disposition home or self-care (01) ==
LOC: ORWHC2ENDO 11:00
PROVIDERS: ATTEND Internal Medicine Gastroenterology
DX: K21.9 Gastro-esophageal reflux disease without esophagitis (principal); K44.9 Diaphragmatic hernia without obstruction or gangrene; K29.50 Unspecified chronic gastritis without bleeding; K31.A11 Gastric intestinal metaplasia without dysplasia, involving the antrum
CPT/HCPCS: 43239; 88305; J2704; J2001

== ENCOUNTER → 2021-12-09 | Outpatient (CLI) | payer MEDICARE ==
[2021-12-09 13:27] LABS: INR 0.9 (<1.2); Partial Thromboplastin Time 22.3 sec (22.0-30.0); Prothrombin Time 10.1 sec (9.0-12.0)
[2021-12-09 18:16] LABS: HCT 39.2 % (37.2-46.3); HGB 12.6 g/dL (12.0-15.0); MCHC 32.1 g/dL (32.0-37.0); MCV 93.3 fL (80.0-97.0); Mean Platelet Volume 12.1 fL (9.5-12.2); NRBC Per 100 WBC 0 /100 WBCS (0.0-0.0); Platelet Count 182 X 10*3/uL (140-440); RDW 13.8 % (11.5-14.5); WBC 5.85 X 10*3/uL (4.50-10.00)
[2021-12-09 19:09] LABS: African American GFR (CKD) 96.3 (60.0-200.0); Albumin 4.4 g/dL (3.8-4.9); Albumin/Globulin Ratio 2.04 (1.60-3.17); Anion Gap 11.3 mmol/L (10.00-18.00); BUN/Creat Ratio 32.36 Ratio (12.00-20.00); Blood Urea Nitrogen 24.4 mg/dL (9.0-27.0); Calcium 9.7 mg/dL (8.7-10.3); Globulin 2.2 g/dL (1.6-3.3); Non-African American GFR(CKD) 83.1 (60.0-200.0); Total Bilirubin 0.5 mg/dL (0.30-1.20); Total Protein 6.6 g/dL (6.2-8.2)
[2021-12-09 19:45] LABS: Appearance,Urine Clear (Clear); Bilirubin,Urine Negative (Negative); Blood,Urine Negative (Negative); Color,Urine Yellow (Yellow); Ketones,Urine Trace mg/dL (Negative); Nitrite,Urine Negative (Negative); Specific Gravity,Urine 1.026 (1.001-1.030)
== END | disposition home or self-care (01) ==
LOC: LABPAT 11:27
PROVIDERS: ATTEND Orthopaedic Surgery Sports Medicine
DX: Z01.812 Encounter for preprocedural laboratory examination (principal)
CPT/HCPCS: 36415; 80053; 81003; 85027; 85610; 85730; 87070; 93005

== ENCOUNTER 2021-12-23 06:13 | Observation (INO) | payer MEDICARE ==
[2021-12-22 09:46] VITALS: BMI 27.3
[~2021-12-23 06:13] MED LIST changes: +ACETAMINOPHEN TAB 500 MG TAB PO PRN; +GABAPENTIN 300 MG CAP PO PRN; -LACTATED RINGERS 1,000 ML IV SCH; +LIDOCAINE 1% (10MG/ML) FOR IV START INTRADERMA PRN; +MELOXICAM 7.5 MG TAB PO PRN; +ONDANSETRON 4 MG/2 ML VIAL IVP ONE; +ONDANSETRON 4 MG/2 ML VIAL IVP PRN; +TRANEXAMIC ACID IN NACL,ISO-OS 1,000 MG in SALINE 1 100ML.BAG IVPB PRN
[2021-12-23] MEDS: LACTATED RINGERS 1,000 ML IV SCH ×2 (07:00→13:09)
[2021-12-23] MEDS ORDERED: HYDROmorphone 0.5 MG/0.5 ML SYRINGE IVP PRN ×3 (07:00→09:52)
[2021-12-23] MEDS ORDERED: ONDANSETRON 4 MG/2 ML VIAL IVP PRN ×2 (07:00→09:52)
[2021-12-23 07:07] LABS: Glucose,Whole Blood 108 mg/dL (70-110)
[2021-12-23] MEDS ORDERED: MIDAZOLAM 2 MG/2 ML VIAL IVP ONE (07:29)
[2021-12-23] MEDS ORDERED: ceFAZolin 3,000 MG in SODIUM CHLORIDE 0.9% IRRIGATIO 3,000 ML IRRIGATION ONE (08:28)
[2021-12-23] MEDS ORDERED: LACTATED RINGERS 1,000 ML IV ONE (08:30)
[2021-12-23] MEDS ORDERED: NALOXONE 0.4 MG/ML 1 ML VIAL IV PRN (09:52)
[2021-12-23] MEDS ORDERED: NA PHOS,M-B/NA PHOS,DI-BA 133 ML ENEMA RECTAL PRN (09:52)
[2021-12-23] MEDS ORDERED: bisacodyL 10 MG SUPP RECTAL PRN (09:52)
[2021-12-23] MEDS ORDERED: MAGNESIUM HYDROXIDE 2,400 MG/10 ML CUP PO PRN (09:52)
[2021-12-23] MEDS ORDERED: ROPIVACAINE 0.2%-NS ON-Q PUMP 2 MG/ML EACH MISCELLANE ONE (09:57)
--- NOTE | 2021-12-23 11:21 | OP ---
OPERATIVE REPORT PREOPERATIVE DIAGNOSIS: Right knee osteoarthrosis. POSTOPERATIVE DIAGNOSIS: Right knee osteoarthrosis. PROCEDURE PERFORMED: Right total knee arthroplasty. ANESTHESIA: Spinal sedation. ESTIMATED BLOOD LOSS: 100 mL. TOURNIQUET TIME: 47 minutes at 250 mmHg. COMPLICATIONS: None apparent. DRAINS: None. DISPOSITION: Postanesthesia care unit. INDICATIONS FOR PROCEDURE: Josselyn is a very pleasant 66-year-old female with longstanding history of right knee pain. History and physical examination are consistent with advanced right knee osteoarthrosis. She has been through significant nonoperative management up to this point. Further treatment options were discussed, and she decided to go forward with the right total knee arthroplasty. Risks of the procedure were discussed with her in detail. These risks include, but are not limited to risk of infection, nerve damage, bleeding, pain, and a small risk of deep vein thrombosis which could lead to fatal pulmonary embolism. There is also a risk of loosening of the implant which could require revision operation. The patient understands these risks. All of her questions were answered to her satisfaction. An appropriate informed consent was obtained. DESCRIPTION OF PROCEDURE: The patient was identified in the preoperative holding area. Surgical site was marked by both the patient and myself. She was given 2 g of Ancef IV for prophylactic purposes. She was then transported to the operative suite, where she was placed supine on the operating room table. Spinal anesthetic was then administered and dosed per the Anesthesia Department without apparent complication. Examination under anesthesia was then performed. The patient was 2 to 3 degrees shy of full extension. She had 100 degrees of flexion, and the medial collateral ligament, lateral collateral ligament, and posterior cruciate ligaments were stable. Tourniquet was then placed high on the right upper thigh and well-padded in preparation for surgery. The patient's right lower extremity was then prepped and draped in usual sterile fashion. Standard surgical pause was undertaken to ensure that we were operating the correct site and that appropriate preoperative antibiotics had been given. All staff in the room were in agreement, and we proceeded. The outlines of the patella were then marked with a surgical pen. A planned 12 cm vertical incision centered over the patella was marked with a surgical pen. The leg was then exsanguinated with an Esmarch dressing. The knee was then flexed, and the tourniquet was inflated to 250 mmHg. The total tourniquet time for the procedure was 47 minutes. Incision was then made with a 10-blade scalpel. Dissection was carried down sharply overlying fascia. Great care was taken to minimize the skin flaps. The knee was then exposed using a standard medial parapatellar approach. A small cuff of quadriceps tendon was then left for suturing. She was in a bit of varus preoperatively. A standard medial release was then made. The superficial medial collateral ligament was dissected off the bone around to the posterior aspect of the proximal tibia. The medial meniscus was then excised as well. The lateral meniscus was also released anteriorly. The leg was then externally rotated. The patella was everted. The knee was flexed. Retractors were then placed to protect the collateral ligaments. I then proceeded to remove the infrapatellar fat pad. This was excised sharply tangentially with fibers of the patellar tendon. I then proceeded to remove peripheral osteophytes. This was done with a rongeur. I then proceeded with the distal femoral resection. She did have near full extension. The planned 9 mm resection was then done. The femoral canal was then entered in the midline of the femur approximately 10 mm anterior to the origin of the posterior cruciate ligament. The kimberly was then advanced down to the center of the femur and placed intramedullary. Based on the preoperative radiographs, the angle between the anatomic and mechanical axis of the femur was approximately 4 to 5 degrees with a valgus angle. The distal femoral cutting guide was then set at 4 degrees for the right knee. The distal femoral cutting guide was then advanced over the intramedullary kimberly. This was seated firmly against the femur. Then, as mentioned, planned to take 9 mm off the distal femur. The cutting block was then secured onto the femur with pins. The jig was then removed. The distal femoral cuts were made through the slot of the block. The pins were then removed. The distal femoral cutting block was removed. The accuracy of the distal femoral cuts was checked with 2 flat bars. I then proceeded with femoral sizing. Posterior referencing sizing guide was held firmly against the resected distal surface of the femur. The posterior condyles were resting on the posterior plane of the guide. The sizing guide was then placed onto the anterior femur. The size was measured as a size 5. I then assessed for femoral rotation. Plan was for 3 degrees of external rotation. 3 degrees of external rotation was placed onto the jig. These holes were then marked. I then confirmed the rotation by 3 separate methods. This was done using epicondylar axis as well as [place]'s line and posterior referencing. It was deemed that the external rotation was proper. I then went forward and placed the femoral cutting block. This was placed over the previously-placed pin holes. The Eliu wing was then placed onto the anterior slots to ensure that we would not notch the anterior femur with the anterior femoral cut. I then proceeded with the anterior femoral cut. This was flush with the anterior cortex of the femur. The posterior cuts were then made followed by the anterior chamfer cut and then the posterior chamfer cut. The cutting block was then removed. Throughout the resection, the collateral ligaments were protected with retractors. I then placed a trial size 5 femur. Slightly wide, but the narrow fit very nicely, and it fit flush with the distal end of the femur. The drill holes were then made. I then proceeded with the tibial cut. I planned for cruciate-retaining knee. The guide was placed in separate varus and valgus and for slope. Height was set for approximately 2 mm resection from the medial tibial plateau, which was the lower side. I was happy with the alignment and the amount of resection. The cutting block was then pinned to the proximal tibia. The alignment kimberly was removed, and the proximal tibia was resected with a reciprocating saw. Again, this was done with retractors protecting the collateral ligaments as well as the posterior cruciate ligament. I then proceeded to evaluate the flexion and extension gaps. A 10 mm block was then placed. The flexion and extension gaps were equal. I then proceeded with the resection of the posterior osteophytes. She had fairly extensive posterior osteophytes. This was done using a curved osteotome. This resected the posterior osteophytes, and posterior capsular stripping was done off the posterior aspect of the femur at this time. The osteophytes were then removed. I then proceeded with resection of the patella. The thickness of the patella was measured using the caliper. The thickness was 22 mm. The thickness of the anticipated patellar dome was taken into account. Resection was then performed and confirmed to be equal in 4 quadrants using a caliper. Approximately 14 mm of bone remained after resection. A 29 x 8 standard patellar trial was then placed. The holes were drilled, and the trial was then placed. I then proceeded with sizing the tibial plate. A size C tibial plate fit very nicely. I then placed the trial femur, the tibial tray, and the patellar button. A 10 mm trial tibial insert was also placed. The components fit very nicely. She had full extension and flexion. The extension and flexion gaps were equal and stable to both varus and valgus stress. The patella tracked appropriately. The tibial tray rotation was then marked with a Bovie. This was externally rotated properly. I then proceeded with tibial preparation. I first drilled the femoral holes and the removed the femoral component. The tibial tray was then set for proper external rotation as well as medial and lateral placement onto the tibia. It was then pinned into place. I then proceeded with punching the keel. I then decided to proceed with cementing of all of our components. The knee was thoroughly irrigated with sterile saline solution via pulsed lavage. The lateral genicular artery was identified and cauterized. All blood was removed from the bone of the tibia, femur, and patella with pulsed lavage. I then proceeded with cementing. Two packs of antibiotic bone cement prepared on the back table by the surgical assistant certified. I then proceeded with cementing the tibia first. The cement was impacted into the keel as well as deeply seated into the bone. A second coat of cement was then placed. The tibia was then impacted into place. Excess cement was removed with [place]'s and Jokers. I then proceeded with cementing of the femoral component. The femoral component was also cemented using standard technique. Excess cement was removed. A 10 mm trial insert was then placed into the knee. It was brought into full extension with a constant axial load placed until the cement had hardened. The patellar component was then cemented. This was held firmly with a compressive device until the cement had dried. When the cement had dried, the knee was taken out of extension. All excess cement was removed from around the prosthesis. I then trialed the knee with a 10 mm insert. I then continued to trial with a 12 and then a 14 mm insert. The flexion and extension gaps felt much better. The knee was stable with the 14 mm insert. It came into full extension. I decided to go forward with the 14 mm Medial Congruent cross-linked cruciate-retaining tibial insert. Polyethylene was then placed on the tibial tray and locked into place. The knee was then reduced. The knee was again further irrigated with sterile saline solution with antibiotic added. The tourniquet was then deflated. Total tourniquet time for the procedure was 47 minutes at 250 mmHg. Final components were Patric Persona size 5 narrow cruciate-retaining femoral component, size C tibial tray, a 14 mm Medial Congruent cruciate-retaining polyethylene insert, and a 29 x 8 mm patella. I then proceeded with closure. Again, the knee was thoroughly irrigated. The quadriceps tendon and the medial retinaculum were reapproximated with #2 Ethibond suture. The extensor mechanism was then closed with a running #2 Quill suture. Subcutaneous tissues were closed with 2-0 Vicryl interrupted suture. The skin was closed with a running 3-0 Quill suture. Dermabond was applied to the incision. Sterile compressive dressings were then applied. All sponge and needle counts were deemed correct prior to closure. The patient tolerated the procedure without apparent complication. She was transferred to recovery room in stable condition. MMODL / IJN: [id number] /
[2021-12-23] MEDS ORDERED: HYDROmorphone 0.5 MG/0.5 ML SYRINGE IVP ONE (13:27)
[2021-12-23] MEDS: HYDROmorphone 0.5 MG/0.5 ML SYRINGE IVP PRN ×2 (14:42→19:07)
--- NOTE | 2021-12-23 15:47 | XR ---
EXAMINATION TYPE: XR knee limited RT DATE OF EXAM: 12/23/2021 COMPARISON: NONE TECHNIQUE: Two views submitted HISTORY: Post op FINDINGS: There is a prosthetic knee in near anatomic alignment. There is soft tissue edema and emphysema. IMPRESSION: 1. Postoperative change. Appears in near-anatomic alignment
[2021-12-23] MEDS ORDERED: PREGABALIN 50 MG CAP PO PRN (18:55)
[2021-12-23] MEDS ORDERED: SODIUM CHLORIDE 5% OPHTH DROPS 15 ML BTL BOTH EYES PRN (19:00)
[2021-12-23] MEDS: SENNOSIDES-DOCUSATE SODIUM 1 EACH TAB PO SCH (20:19)
[2021-12-23] MEDS: PANTOPRAZOLE 40 MG TABLET PO SCH (20:19)
[2021-12-23] MEDS: ASPIRIN 81 MG PO SCH (20:20)
--- NOTE | 2021-12-23 20:22 | P.ANPRN ---
Procedure Note - Anesthesia - Nerve Block Performed Right Adductor Canal Infusion Time Out Performed: Yes Date of Procedure: 12/23/21 Procedure Start Time: 07:28 Procedure Stop Time: 07:39 Location of Patient: PreOp (739) Indication: Acute Post-Operative Pain, Requested by Surgeon Sedation Type: Sedate with meaningful contact maintained Preparation: Sterile Prep, Sterile Dressing Position: Supine Catheter: Indwelling Needle Types: Pajunk Needle Gauge: 21 Ultrasound used to visualize needle placement: Yes Ultrasound used to observe medication spread: Yes Blood Aspirated: No Pain Paresthesia on Injection Noted: No Resistance on Injection: Normal Image Stored and Saved: Yes Events: Uneventful and Well Tolerated (ropi .5% 20cc)
--- NOTE | 2021-12-23 20:23 | P.ANPRN ---
Procedure Note - Anesthesia - Nerve Block Performed Right Williamck Single Time Out Performed: Yes Date of Procedure: 12/23/21 Procedure Start Time: 07:40 Procedure Stop Time: 07:43 Location of Patient: PreOp Indication: Acute Post-Operative Pain, Requested by Surgeon Sedation Type: Sedate with meaningful contact maintained Preparation: Sterile Prep Position: Supine Needle Types: Pajunk Needle Gauge: 21 Ultrasound used to visualize needle placement: Yes Ultrasound used to observe medication spread: Yes Blood Aspirated: No Pain Paresthesia on Injection Noted: No Resistance on Injection: Normal Image Stored and Saved: Yes Events: Uneventful and Well Tolerated (ropi .5% 25cc plus dexamethasone 4mg)
[2021-12-23] MEDS: HYDROcodone/APAP 7.5-325MG 1 EACH TAB PO PRN (21:07)
[2021-12-24] MEDS: HYDROmorphone 0.5 MG/0.5 ML SYRINGE IVP PRN ×2 (00:15→03:42)
--- NOTE | 2021-12-24 06:00 | CONS ---
CONSULTATION CHIEF COMPLAINT: Arthritis of the right knee. HISTORY OF PRESENT ILLNESS: This is another admission for this lady who has had longstanding history of difficulty with the knee and is in for an elective TKA. She also has a history of mild hypertension, hyperlipidemia, and PVCs. She follows at the [facility] for her cardiac arrhythmia, which has been well controlled. REVIEW OF SYSTEMS: She denies any recent headaches, neurologic symptoms, change in vision or hearing, chest pain, shortness of breath, nausea or vomiting, hematemesis, melena, hematochezia, jaundice, hematuria, frequency, urgency, renal failure, incontinence, diabetes, etc. Past medical history, family history and personal and social histories demonstrate that she is on 15 mg twice a day, Etodolac 400 mg twice a day, Lasix 40 mg once a day, vitamin D3, atorvastatin 40 mg once a day, tramadol 50 mg p.r.n., Linzess 290 mg once a day, losartan 50 mg once a day, verapamil 120 once a day as well as omeprazole and potassium. She is Allergic to quinolones, Medrol and sulfa. Remainder of her history is unremarkable. She does not smoke. PHYSICAL EXAMINATION: VITAL SIGNS: Blood pressure is 131/70 with a pulse of 69, respirations of 15, and she is afebrile. GENERAL: She appeared to be well developed, well nourished, no acute distress. SKIN: Color is normal. Skin is warm and dry. LYMPH NODES: Not enlarged. HEENT: Head, ears, eyes, nose, mouth and throat are normal. NECK: Veins not distended. Thyroid enlarged. CHEST: Clear to auscultation and percussion. CARDIAC: Demonstrates normal sinus rhythm and no PVCs. ABDOMEN: Soft and nontender. EXTREMITIES: Unremarkable except for the right knee. NEUROLOGICAL: She is intact and pulses are normal. DIAGNOSES: She is admitted to the hospital with diagnoses, 1. Osteoarthritis of the right knee. 2. History of hypertension. 3. History of frequent benign premature ventricular contractions. RECOMMENDATIONS: None. MMODL / IJN: [id number] /
[2021-12-24] MEDS: HYDROcodone/APAP 7.5-325MG 1 EACH TAB PO PRN ×4 (06:28→21:17)
[2021-12-24] MEDS: LOSARTAN 50 MG TAB PO SCH (08:01)
[2021-12-24] MEDS: PANTOPRAZOLE 40 MG TABLET PO SCH (08:01)
[2021-12-24] MEDS: VERAPAMIL SR 120 MG TABLET.ER PO SCH (08:02)
[2021-12-24] MEDS: ASPIRIN 81 MG PO SCH ×2 (08:02→21:17)
[2021-12-24] MEDS: POTASSIUM CHLORIDE ER 20 MEQ TAB.ER PO SCH (08:02)
--- NOTE | 2021-12-24 08:31 | P.DS ---
Providers Date of admission: 12/24/21 07:20 Expected date of discharge: 12/24/21 Attending physician: Jeremy Gonzales Consults: 12/23/21 09:57 Consult Physician Routine Consulting Provider: Robert Urrutia Consult Reason/Comments: medical management Do you want consulting provider notified?: Yes Primary care physician: Robert Urrutia - Discharge Diagnosis(es) (1) Status post right knee replacement Current Visit: Yes Status: Acute (2) Primary osteoarthritis of right knee Current Visit: Yes Status: Acute Hospital Course: This is a pleasant 66-year-old female last seen in our office with complaints of right knee pain. Patient has known history of degenerative arthritis of the right knee and presented to discuss options. After discussion and consideration, patient elected to proceed with a total knee arthroplasty of the right knee. The patient was seen preoperatively and medically cleared for surgery by her primary care physician. The patient was admitted to [facility] and underwent right total knee arthroplasty on 12/23/[address] Gonzales. The procedure was performed without complications or sequelae. The patient has done well postoperatively. The patient was seen and evaluated at bedside today and denies any new complaints. Pain is reasonably controlled. Dressing is clean dry and intact. Incision looks fine with no erythema or active drainage. Calf is soft and nontender. The patient has full foot and ankle motion without difficulty. Patient's right lower extremity is neurovascular intact. Patient is orthopedically stable for discharge to home today. Pertinent Studies: Laboratory Tests 12/24/21 06:02 WBC 9.68 RBC 3.31 L Hgb 10.2 L Hct 31.2 L Patient Condition at Discharge: Stable Plan - Discharge Summary Discharge Rx Participant: Yes New Discharge Prescriptions: New HYDROcodone/APAP 7.5-325MG [[place] 7.5-325] 1 tab PO Q4-6H PRN #42 tab PRN Reason: Pain Aspirin 81 mg PO BID #60 tab No Action Etodolac [Lodine] 400 mg PO BID PRN PRN Reason: Pain Losartan [Cozaar] 50 mg PO QAM Atorvastatin [Lipitor] 40 mg PO HS Potassium Chloride [Potassium Chloride ER] 20 meq PO DAILY Omeprazole 20 mg PO BID Furosemide [Lasix] 40 mg PO DAILY Ergocalciferol (Vitamin D2) [Vitamin D2] 50,000 unit PO Q14D Pregabalin [Lyrica] 50 mg PO BID PRN PRN Reason: nerve pain Inulin/Chromium Picolinate [Fiber Gummies Chew] 4 tab PO DAILY Vicente/D3/Mag11/Zinc/Solid Center Winder/Ángel/Bor [Caltrate 600+D Plus Tablet] 1 each PO DAILY Sodium Chloride 5% Ophth Soln [Katie 128] 1 drops BOTH EYES DIRECTED Linaclotide [Linzess] 290 mcg PO AC-BRKFST Verapamil Sr [Isoptin Sr] 120 mg PO DAILY Acetaminophen [Tylenol Extra Strength] 1,000 mg PO DIRECTED PRN PRN Reason: Pain Discharge Medication List Etodolac [Lodine] 400 mg PO BID PRN 10/24/13 [History] Atorvastatin [Lipitor] 40 mg PO HS 12/18/18 [History] Ergocalciferol (Vitamin D2) [Vitamin D2] 50,000 unit PO Q14D 12/18/18 [History] Furosemide [Lasix] 40 mg PO DAILY 12/18/18 [History] Losartan [Cozaar] 50 mg PO QAM 12/18/18 [History] Omeprazole 20 mg PO BID 12/18/18 [History] Potassium Chloride [Potassium Chloride ER] 20 meq PO DAILY 12/18/18 [History] Inulin/Chromium Picolinate [Fiber Gummies Chew] 4 tab PO DAILY 08/26/21 [History] Linaclotide [Linzess] 290 mcg PO AC-BRKFST 08/26/21 [History] Pregabalin [Lyrica] 50 mg PO BID PRN 08/26/21 [History] Acetaminophen [Tylenol Extra Strength] 1,000 mg PO DIRECTED PRN 12/22/21 [History] Vicente/D3/Mag11/Zinc/Solid Center Winder/Ángel/Bor [Caltrate 600+D Plus Tablet] 1 each PO DAILY 12/22/21 [History] Sodium Chloride 5% Ophth Soln [Katie 128] 1 drops BOTH EYES DIRECTED 12/22/21 [History] Verapamil Sr [Isoptin Sr] 120 mg PO DAILY 12/22/21 [History] Aspirin 81 mg PO BID #60 tab 12/23/21 [Rx] HYDROcodone/APAP 7.5-325MG [[place] 7.5-325] 1 tab PO Q4-6H PRN #42 tab 12/23/21 [Rx] Follow up Appointment(s)/Referral(s): Jeremy Gonzales MD [STAFF PHYSICIAN] - 01/04/22 11:00 am Activity/Diet/Wound Care/Special Instructions: Weightbearing as tolerated with a walker Daily dressing changes, keep incision clean and dry May shower uncovered if no drainage in 2 days after surgery Aspirin 81 mg twice daily Follow up with Dr. Gonzales in 10 days Call [facility] with questions or concerns, [phone] Discharge Disposition: HOME WITH HOME HEALTH SERVICES
--- NOTE | 2021-12-24 08:39 | P.PN ---
Progress Note - Text 12/24/21 646am 66-year-old female status post total knee replacement by Dr. Gonzales. Patient has an On-Q pump for postop pain control with the solution running at 8 mL an hour with a VAS of 3 at rest. No complains of nausea vomiting dressing clean dry and intact. Plan to continue On-Q pump infusion
[2021-12-24 08:56] LABS: Basophils # (A) 0.02 X 10*3/uL (0.00-0.10); Basophils % (A) 0.2 %; Eosinophils # (A) 0.01 X 10*3/uL (0.04-0.35); Eosinophils % (A) 0.1 %; HCT 31.2 % (37.2-46.3); HGB 10.2 g/dL (12.0-15.0); Immature Grans, Automated 0.3 %; Lymphocytes # (A) 1.04 X 10*3/uL (0.90-5.00); Lymphocytes % (A) 10.7 %; MCH 30.8 pg (27.0-32.0); MCHC 32.7 g/dL (32.0-37.0); MCV 94.3 fL (80.0-97.0); Mean Platelet Volume 11.7 fL (9.5-12.2); Monocytes # (A) 0.69 X 10*3/uL (0.20-1.00); Monocytes % (A) 7.1 %; NRBC Per 100 WBC 0 /100 WBCS (0.0-0.0); Neutrophils # (A) 7.89 X 10*3/uL (1.80-7.70); Neutrophils % (A) 81.6 %; Platelet Count 149 X 10*3/uL (140-440); RBC 3.31 X 10*6/uL (4.10-5.20); RDW 13.9 % (11.5-14.5); WBC 9.68 X 10*3/uL (4.50-10.00)
[2021-12-24] MEDS: FUROSEMIDE 40 MG TAB PO SCH (09:41)
[2021-12-24] MEDS: NON FORMULARY DRUG (Linaclotide [Linzess] 290 MCG Capsule) PO SCH (09:41)
[2021-12-24] MEDS ORDERED: polyethylene glycoL 3350 17 GM POWD.PACK PO PRN (13:52)
[2021-12-24] MEDS: hydrOXYzine pamoate 25 MG CAP PO PRN ×2 (17:45→23:24)
[2021-12-24] MEDS: LACTATED RINGERS 1,000 ML IV SCH (21:13)
[2021-12-24] MEDS: SENNOSIDES-DOCUSATE SODIUM 1 EACH TAB PO SCH (21:17)
[2021-12-25] MEDS: HYDROcodone/APAP 7.5-325MG 1 EACH TAB PO PRN ×3 (02:57→15:09)
[2021-12-25] MEDS: NON FORMULARY DRUG (Linaclotide [Linzess] 290 MCG Capsule) PO SCH (08:37)
[2021-12-25] MEDS: ASPIRIN 81 MG PO SCH (08:40)
[2021-12-25] MEDS: PANTOPRAZOLE 40 MG TABLET PO SCH (08:40)
[2021-12-25] MEDS: FUROSEMIDE 40 MG TAB PO SCH (08:40)
[2021-12-25] MEDS: VERAPAMIL SR 120 MG TABLET.ER PO SCH (08:40)
[2021-12-25] MEDS: POTASSIUM CHLORIDE ER 20 MEQ TAB.ER PO SCH (08:40)
[2021-12-25] MEDS: LOSARTAN 50 MG TAB PO SCH (08:40)
[2021-12-25] MEDS: hydrOXYzine pamoate 25 MG CAP PO PRN ×2 (08:40→15:10)
--- NOTE | 2021-12-25 10:14 | P.DS ---
Providers Date of admission: 12/24/21 07:20 Expected date of discharge: 12/25/21 Attending physician: Jeremy Gonzales Consults: 12/23/21 09:57 Consult Physician Routine Consulting Provider: Robert Urrutia Reason/Comments: medical management Do you want consulting provider notified?: Yes Primary care physician: Robert Sarmientohven [facility] Course: This is a pleasant 66-year-old female last seen in our office with complaints of right knee pain. Patient has known history of degenerative arthritis of the right knee and presented to discuss options. After discussion and consideration, patient elected to proceed with a total knee arthroplasty of the right knee. The patient was seen preoperatively and medically cleared for surgery by her primary care physician. The patient was admitted to [facility] and underwent right total knee arthroplasty on 12/23/[address] Gonzales. The procedure was performed without complications or sequelae. The patient has done well postoperatively. The patient was seen and evaluated at bedside today and denies any new complaints. She was not discharge yesterday as she was experiencing an increase in pain, although this morning her pain is reasonably controlled. She is comfortable being discharged home today. She denies chest pain, shortness of breath, nausea, vomiting. On examination, the patient is sitting up in bed in no apparent distress. She is alert and oriented 3. On inspection of the right knee, there is a clean, dry, intact dressing in place with no bleeding or drainage through the dressing. Motor and sensory function is intact of the right lower extremity. Dorsalis pedis pulse easily palpable, right lower extremity warm and well-perfused. Patient is discharged home today, pending medical clearance. Please see med rec for accurate list of discharge medications. She should follow-up in the office in [address] Gonzales. Patient Condition at Discharge: Stable Plan - Discharge Summary Discharge Rx Participant: Yes New Discharge Prescriptions: New HYDROcodone/APAP 7.5-325MG [[place] 7.5-325] 1 tab PO Q4-6H PRN #42 tab PRN Reason: Pain Aspirin 81 mg PO BID #60 tab No Action Etodolac [Lodine] 400 mg PO BID PRN PRN Reason: Pain Losartan [Cozaar] 50 mg PO QAM Atorvastatin [Lipitor] 40 mg PO HS Potassium Chloride [Potassium Chloride ER] 20 meq PO DAILY Omeprazole 20 mg PO BID Furosemide [Lasix] 40 mg PO DAILY Ergocalciferol (Vitamin D2) [Vitamin D2] 50,000 unit PO Q14D Pregabalin [Lyrica] 50 mg PO BID PRN PRN Reason: nerve pain Inulin/Chromium Picolinate [Fiber Gummies Chew] 4 tab PO DAILY Vicente/D3/Mag11/Zinc/Laundry Routeman/Ángel/Bor [Caltrate 600+D Plus Tablet] 1 each PO DAILY Sodium Chloride 5% Ophth Soln [Katie 128] 1 drops BOTH EYES DIRECTED Linaclotide [Linzess] 290 mcg PO AC-BRKFST Verapamil Sr [Isoptin Sr] 120 mg PO DAILY Acetaminophen [Tylenol Extra Strength] 1,000 mg PO DIRECTED PRN PRN Reason: Pain Discharge Medication List Etodolac [Lodine] 400 mg PO BID PRN 10/24/13 [History] Atorvastatin [Lipitor] 40 mg PO HS 12/18/18 [History] Ergocalciferol (Vitamin D2) [Vitamin D2] 50,000 unit PO Q14D 12/18/18 [History] Furosemide [Lasix] 40 mg PO DAILY 12/18/18 [History] Losartan [Cozaar] 50 mg PO QAM 12/18/18 [History] Omeprazole 20 mg PO BID 12/18/18 [History] Potassium Chloride [Potassium Chloride ER] 20 meq PO DAILY 12/18/18 [History] Inulin/Chromium Picolinate [Fiber Gummies Chew] 4 tab PO DAILY 08/26/21 [History] Linaclotide [Linzess] 290 mcg PO AC-BRKFST 08/26/21 [History] Pregabalin [Lyrica] 50 mg PO BID PRN 08/26/21 [History] Acetaminophen [Tylenol Extra Strength] 1,000 mg PO DIRECTED PRN 12/22/21 [History] Vicente/D3/Mag11/Zinc/Laundry Routeman/Ángel/Bor [Caltrate 600+D Plus Tablet] 1 each PO DAILY 12/22/21 [History] Sodium Chloride 5% Ophth Soln [Katie 128] 1 drops BOTH EYES DIRECTED 12/22/21 [History] Verapamil Sr [Isoptin Sr] 120 mg PO DAILY 12/22/21 [History] Aspirin 81 mg PO BID #60 tab 12/23/21 [Rx] HYDROcodone/APAP 7.5-325MG [[place] 7.5-325] 1 tab PO Q4-6H PRN #42 tab 12/23/21 [Rx] Follow up Appointment(s)/Referral(s): Jeremy Gonzales MD [STAFF PHYSICIAN] - 01/04/22 11:00 am Patient Instructions/Handouts: Knee Replacement (DC) Activity/Diet/Wound Care/Special Instructions: Weightbearing as tolerated with a walker Daily dressing changes, keep incision clean and dry May shower uncovered if no drainage in 2 days after surgery Aspirin 81 mg twice daily Follow up with Dr. Gonzales in 10 days Call [facility] with questions or concerns, [phone] Discharge Disposition: HOME WITH HOME HEALTH SERVICES
--- NOTE | 2021-12-25 13:07 | PN ---
PROGRESS NOTE CHIEF COMPLAINT: Arthritis of the right knee. HISTORY OF PRESENT ILLNESS: This lady is doing very well postop. She has had no fever, chills, nausea, vomiting, difficulty urinating, significant pain, etc. She expects to go home today. PHYSICAL EXAMINATION: VITAL SIGNS: Normal. CHEST: Clear. CARDIAC: Normal. ABDOMEN: Soft, and nontender. IMPRESSION: 1. Status post right total knee arthroplasty. 2. Hypertension. 3. Premature ventricular contractions. PLAN: Probably home today. MMODL / IJN: [id number] /
--- NOTE | 2021-12-25 13:09 | P.PN ---
Subjective Patient admitted for left neoplastic clinically doing well pain is well- controlled patient is being discharged today Constitutional: Denied any fatigue denied any fever. Cardio vascular: denied any chest pain, palpitations Gastrointestinal denied any nausea vomiting Pulmonary: Denied any shortness of breath cough Neurologic denied any new focal deficits All inpatient medications were reviewed and appropriate changes in these medications as dictated in the interval history and assessment and plan. PHYSICAL EXAMINATION: GENERAL: The patient is alert and oriented x3, not in any acute distress. Well developed, well nourished. HEENT: Pupils are round and equally reacting to light. EOMI. No scleral icterus. No conjunctival pallor. Normocephalic, atraumatic. No pharyngeal erythema. No thyromegaly. CARDIOVASCULAR: S1 and S2 present. No murmurs, rubs, or gallops. PULMONARY: Chest is clear to auscultation, no wheezing or crackles. ABDOMEN: Soft, nontender, nondistended, normoactive bowel sounds. No palpable organomegaly. MUSCULOSKELETAL: Deferred to orthopedic surgery EXTREMITIES: No cyanosis, clubbing, or pedal edema. NEUROLOGICAL: Gross neurological examination did not reveal any focal deficits. SKIN: No rashes. Assessment and plan -Hypertension patient will be resumed on her home medications blood pressure is well controlled at this time -Osteoarthritis -Chronic back pain with the neuropathy for which patient will continue her Lyrica -Hyperlipidemia -Gastroesophageal reflux disease Patient is clinically doing well can be discharged from medical perspective: Objective - Vital Signs Vital signs: Vital Signs Temp 98.1 F 12/25/21 08:00 Pulse 78 12/25/21 08:00 Resp 17 12/25/21 08:00 BP 136/67 12/25/21 08:00 Pulse Ox 94 L 12/25/21 08:00 FiO2 Intake & Output 12/24/21 12/25/21 12/25/21 18:59 06:59 18:59 Intake Total 1080 240 Balance 1080 240 Intake: Oral 1080 240 Other: Voiding Method Toilet Toilet Toilet Bedpan # Voids 4 6 - Labs CBC & Chem 7: 12/24/21 06:02
[2021-12-25 15:16] VITALS: BP 129/68; PULSE 82; RESP 16; TEMP 98.5
== END 2021-12-25 16:16 | disposition home health service (06) ==
LOC: OR 06:13 → 4SSUR 09:38 → OR 12-24 07:20
PROVIDERS: ADMIT Orthopaedic Surgery Sports Medicine; ATTEND Orthopaedic Surgery Sports Medicine
DX: M17.11 Unilateral primary osteoarthritis, right knee (principal); G89.18 Other acute postprocedural pain; I10 Essential (primary) hypertension; E78.5 Hyperlipidemia, unspecified; I49.3 Ventricular premature depolarization; M54.9 Dorsalgia, unspecified; G89.29 Other chronic pain; G62.9 Polyneuropathy, unspecified; K21.9 Gastro-esophageal reflux disease without esophagitis; Z88.2 Allergy status to sulfonamides; Z88.8 Allergy status to other drugs, medicaments and biological substances
CPT/HCPCS: 97161; 64999; 64448; 76942; 85025; 88300; 73560; 27447; G0378 ×2; C1776; C1713; J2250; J0690 ×3; J2405; J1170 ×2; J2795

== ENCOUNTER → 2022-05-05 | Outpatient (CLI) | payer MEDICARE ==
--- NOTE | 2022-05-05 16:33 | BD ---
EXAMINATION TYPE: Axial Bone Density DATE OF EXAM: 05/05/2022 COMPARISON: 12/24/2019 CLINICAL HISTORY: 66 years year old Female. ICD-10 CODE: M85.88 OTHER DISORDER OF BONE Height: 60 IN Weight: 136 LBS RISK FACTORS HISTORY OF: Surgery to Hip(left): 2010 Active: YES Postmenopausal woman: PARTIAL HYST AGE 53 MEDICATIONS: Additional Medications: VIT D, LASIX, LIPITOR, VERAPAMIL, IODINE, POTASSIUM, PRILOSEC, LOSARTAN, META MUCIL, DONNIE, TRAMADOL, LINZESS, LYRICA EXAM MEASUREMENTS: Bone mineral densitometry was performed using the Sensum System. Bone mineral density as measured about the Lumbar spine is: ----- L1-L4(G/cm2): 0.995 T Score Values are as follows: ----- L1: -1.4 ----- L2: -0.5 ----- L3: -2.3 ----- L4: -1.9 ----- L1-L4: -1.5 Bone mineral density has: Decreased -2.6% since study of: 12/24/2019 Bone mineral density about the R hip (g/cm2): 0.685 T Score values are as follows: -----R Neck: -2.5 -----R Total: -2.6 Bone mineral density has: Decreased -8.8% since study of: 12/24/2019 FRAX%s: The graph provided illustrates a 13.8 chance for a major osteoporotic fx and a 3.1 chance for the hips probability for fx in 10 years time. IMPRESSION: Osteoporosis (T Score less than -2.5). There is increased fracture risk and therapy is usually indicated based on age. Re-Screen 1-2 years. NOTE: T-SCORE=SD OF THE YOUNG ADULT MEAN.
--- NOTE | 2022-05-06 08:44 | MM ---
Reason for Exam: Screening (asymptomatic). Last mammogram was performed 1 year(s) and 2 month(s) ago. Patient History: Menarche at age 14. First Full-Term at age 35. Late child-bearing (after 30). Hysterectomy at age 63. Postmenopausal. Patient has history of breast feeding. Risk Values: [place] 5 year model risk: 2.3%. NCI Lifetime model risk: 8.6%. Prior Study Comparison: 02/01/2018 Bilateral Screening Mammogram, [facility]. 12/24/2019 Bilateral Screening Mammogram, [facility]. 02/24/2021 Bilateral Screening Mammogram, [facility]. Tissue Density: The breast tissue is heterogeneously dense. This may lower the sensitivity of mammography. Findings: Analyzed By CAD. There is no suspicious group of microcalcifications or new suspicious mass in either breast. Overall Assessment: Negative, BI-RAD 1 Management: Screening Mammogram of both breasts in 1 year. A clinical breast exam by your physician is recommended on an annual basis and results should be correlated with mammographic findings. Electronically signed and approved by: Jose Haskins D.O.
== END | disposition home or self-care (01) ==
LOC: RADMAMWWP 09:20
PROVIDERS: ATTEND Obstetrics & Gynecology
DX: Z12.31 Encounter for screening mammogram for malignant neoplasm of breast (principal); M81.0 Age-related osteoporosis without current pathological fracture; M85.88 Other specified disorders of bone density and structure, other site; Z78.0 Asymptomatic menopausal state
CPT/HCPCS: 77063; 77067; 77080

== ENCOUNTER → 2023-03-10 | Outpatient (CLI) | payer MEDICARE | END | disposition home or self-care (01) | LOC: LABWHC1 09:44 | PROVIDERS: ATTEND Internal Medicine | DX: Z87.898 Personal history of other specified conditions (principal) | CPT/HCPCS: 36415; 83036 ==

== ENCOUNTER → 2023-05-18 | Outpatient (CLI) | payer MEDICARE ==
--- NOTE | 2023-05-19 19:16 | MM ---
Reason for Exam: Screening (asymptomatic). Last screening mammogram was performed 12 month(s) ago. Patient History: Menarche at age 14. First Full-Term at age 35. Late child-bearing (after 30). Hysterectomy at age 63. Postmenopausal. Patient has history of breast feeding. Risk Values: [place] 5 year model risk: 2.3%. NCI Lifetime model risk: 8.2%. Prior Study Comparison: 12/24/2019 Bilateral Screening Mammogram, [facility]. 02/24/2021 Bilateral Screening Mammogram, [facility]. 05/05/2022 Bilateral MG 3D screening mammo w/cad, [facility]. Tissue Density: There are scattered fibroglandular densities. Findings: Analyzed By CAD. Unchanged global asymmetry lateral right breast. There is no suspicious group of microcalcifications or new suspicious mass in either breast. Overall Assessment: Benign, BI-RAD 2 Management: Screening Mammogram of both breasts in 1 year. . Patient should continue monthly self-breast exams. A clinical breast exam by your physician is recommended on an annual basis. This exam should not preclude additional follow-up of suspicious palpable abnormalities. Note on [place] scores and lifetime risk: 1. A [place] score greater than 3% is considered moderate risk. If this is the case, consider specialist referral to assess eligibility for a risk reducing agent. 2. If overall lifetime risk for the development of breast cancer is 20% or higher, the patient may qualify for future screening with alternating mammogram and breast MRI. Electronically signed and approved by: Maame Luke M.D. Radiologist
== END | disposition home or self-care (01) ==
LOC: RADMAMWWP 12:31
PROVIDERS: ATTEND Obstetrics & Gynecology
DX: Z12.31 Encounter for screening mammogram for malignant neoplasm of breast (principal); Z78.0 Asymptomatic menopausal state
CPT/HCPCS: 77063; 77067

== ENCOUNTER → 2023-06-09 | Day surgery (SDC) | payer MEDICARE ==
[2023-06-07 15:50] VITALS: BMI 26.4
[~2023-06-09] MED LIST changes: -ACETAMINOPHEN TAB 500 MG TAB PO PRN; -GABAPENTIN 300 MG CAP PO PRN; +LIDOCAINE 1% INJ 10MG/ML (20 ML MDV) ONE; -MELOXICAM 7.5 MG TAB PO PRN; -ONDANSETRON 4 MG/2 ML VIAL IVP ONE; +PROPOFOL 10 MG/ML 20 ML VIAL IV ONE; -TRANEXAMIC ACID IN NACL,ISO-OS 1,000 MG in SALINE 1 100ML.BAG IVPB PRN
[2023-06-09] MEDS: LACTATED RINGERS 1,000 ML IV SCH (08:44)
[2023-06-09 09:20] VITALS: TEMP 97.8
--- NOTE | 2023-06-09 09:48 | P.PCN ---
Date of Procedure: 06/09/23 Procedure(s) Performed: BRIEF HISTORY: Patient is a 68-year-old pleasant female scheduled for an elective colonoscopy as a part of evaluation of change in bowel habits for the last several years duration. PROCEDURE PERFORMED: Colonoscopy. PREOPERATIVE DIAGNOSIS: Change in bowel habits. IV sedation per Anesthesia. PROCEDURE: After informed consent was obtained, the patient, was brought into the endoscopy unit. IV sedation was administered by Anesthesia under continuous monitoring. Digital rectal examination was normal. Initially the Olympus CF-160 flexible video colonoscope was then inserted in the rectum, gradually advanced into the cecum without any difficulty. Careful examination was performed as the scope was gradually being withdrawn. Ileocecal valve and the appendiceal orifice were visualized and appeared normal. Prep was excellent. Mucosa of the cecum, ascending colon, transverse colon, descending colon, sigmoid colon, and rectum appeared normal. Scattered sigmoid diverticulosis Retroflexion was performed in the rectum and no lesions were seen. The patient tolerated the procedure well. IMPRESSION: Normal-appearing colon from rectum to cecum no evidence of colorectal neoplasia. Scattered sigmoid diverticula RECOMMENDATIONS: Findings of this examination were discussed with the patient as well as her family. She was advised to have a repeat screening colonoscopy in 10 years.
[2023-06-09 10:25] VITALS: BP 112/70; PULSE 71; RESP 16
== END ==
LOC: ORWHC2ENDO 08:23
PROVIDERS: ATTEND Internal Medicine Gastroenterology
DX: K57.30 Diverticulosis of large intestine without perforation or abscess without bleeding (principal); I10 Essential (primary) hypertension; R19.4 Change in bowel habit; E78.5 Hyperlipidemia, unspecified; I49.3 Ventricular premature depolarization; M19.90 Unspecified osteoarthritis, unspecified site; G43.909 Migraine, unspecified, not intractable, without status migrainosus; G10 Huntington's disease; Z86.74 Personal history of sudden cardiac arrest; Z85.828 Personal history of other malignant neoplasm of skin; Z79.899 Other long term (current) drug therapy; Z88.2 Allergy status to sulfonamides; Z88.8 Allergy status to other drugs, medicaments and biological substances
CPT/HCPCS: 45378; J2001; J2704

== ENCOUNTER → 2023-09-05 | Outpatient (CLI) | payer MEDICARE ==
[2023-09-05 13:59] VITALS: BP 122/76; PULSE 78; RESP 16; TEMP 98.3
--- NOTE | 2023-09-05 14:35 | P.HPOB ---
History of Present Illness H&P Date: 09/05/23 Chief Complaint: The patient is here for her routine gynecologic exam. This is a 68-year-old -1-2-1 with an LMP of 2008. The patient is here to establish with this office. She is status post vaginal hysterectomy with anterior and posterior repairs for benign reasons. She is without gynecologic complaints. It has been about 1 year since her last pelvic exam. Review of Systems The patient's weight has been stable over the last year. She denies respiratory, cardiac, or G.I. problems. Past Medical History Past Medical History: Cancer, GERD/Reflux, Hyperlipidemia, Hypertension, Osteoarthritis (OA) Additional Past Medical History / Comment(s): MIGRAINES, CORNEAL DX(Fuch's disease), takes verapamil for PVC's, feet & ankle edema, dysphagia w/solids for several months, chronic constipation, PRE DIABETIC, SKIN CANCER ON NOSE. Osteoporosis. Back pain. IBS-C. Past MER[employer]ER history: Trichomonas in her 20s. History of Any Multi-Drug Resistant Organisms: None Reported Past Surgical History: Cardiac Ablation, Hysterectomy, Joint Replacement Additional Past Surgical History / Comment(s): LEFT HIP REPLACEMENT, PARTIAL THYROIDECTOMY(LT SIDE ) HAD BENIGN TUMOR, ECTOPIC , COLONOSCOPY 2023(next after 10y), RT TKA 2021, REMOVAL SKIN CA ON NOSE. Vaginal hysterectomy with anterior and posterior repairs 2018. 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 - Past Family History Father Family Medical History: Cancer, Diabetes Mellitus, Hyperlipidemia, Hypertension Additional Family Medical History / Comment(s): prostate cancer. . Mother Family Medical History: Hyperlipidemia, Hypertension Additional Family Medical History / Comment(s): Cardiomyopathy. . Denies family history of cancer of the breast, uterus, ovaries, or colon. Medications and Allergies Home Medications Medication Instructions Recorded Confirmed Type Etodolac [Lodine] 400 mg PO BID PRN 10/24/13 09/05/23 History Atorvastatin [Lipitor] 40 mg PO HS 12/18/18 09/05/23 History Ergocalciferol (Vitamin D2) 50,000 unit PO Q14D 12/18/18 09/05/23 History [Vitamin D2] Furosemide [Lasix] 40 mg PO DAILY 12/18/18 09/05/23 History Losartan [Cozaar] 50 mg PO HS 12/18/18 09/05/23 History Omeprazole 20 mg PO BID 12/18/18 09/05/23 History Potassium Chloride [Potassium 20 meq PO DAILY 12/18/18 09/05/23 History Chloride ER] Inulin/Chromium Picolinate [Fiber 4 tab PO DAILY 08/26/21 09/05/23 History Gummies Chew] Linaclotide [Linzess] 290 mcg PO AC-BRKFST 08/26/21 09/05/23 History Pregabalin [Lyrica] 50 mg PO BID PRN 08/26/21 09/05/23 History Acetaminophen [Tylenol Extra 1,000 mg PO DIRECTED PRN 12/22/21 09/05/23 Hist ory Strength] Vicente/D3/Mag11/Zinc/Prototype Fabricator/Ángel/Bor 1 each PO DAILY 12/22/21 09/05/23 History [Caltrate 600+D Plus Tablet] Sodium Chloride 5% Ophth Soln 1 drops BOTH EYES DIRECTED 12/22/21 09/05/23 History [Katie 128] Verapamil Sr [Isoptin Sr] 120 mg PO HS 12/22/21 09/05/23 History hydrOXYzine pamoate [Vistaril] 25 mg PO Q6H PRN #15 cap 12/25/21 09/05/23 Rx Allergies Allergy/AdvReac Type Severity Reaction Status Date / Time methylprednisolone Allergy elevated Verified 09/05/23 13:30 [From Medrol] bp and heart rate Sulfa (Sulfonamide Allergy lip Verified 09/05/23 13:30 Antibiotics) swelling and rash amlodipine besylate AdvReac Swelling Verified 09/05/23 13:30 [From Norvasc] levofloxacin [From Levaquin] AdvReac numbness Verified 09/05/23 13:30 Exam Vital Signs Temp Pulse Resp BP Pulse Ox 09/05/23 13:31 98.3 F 78 16 122/76 99 Intake and Output 09/04/23 09/05/23 09/05/23 22:59 06:59 14:59 Other: Weight 63.049 kg Height 5 feet 0 inches, weight 139 pounds, BMI 27.1 This is a well-developed well-nourished white female who is alert and oriented times 3 in no acute distress. HEENT: Within normal limits. NECK: Supple without mass or thyromegaly. CHEST AND LUNGS: Clear to auscultation. HEART: Regular rate and rhythm. BREASTS: Are without mass or discharge. AXILLARY EXAM: Negative for adenopathy. BACK: Negative for CVA tenderness. ABDOMEN: Soft, nontender, without palpable masses. PELVIC EXAM: External genitalia appears normal with mild. Vagina appears normal with mild atrophy. There is mild vaginal shortening consistent with her anterior and posterior repairs. There is no evidence of prolapse. Bimanual examination is negative for mass or tenderness. RECTAL EXAM: Rectovaginal exam is negative for mass or tenderness and is negative for occult blood. EXTREMITIES: Nontender. IMPRESSION: 1. 68-year-old menopausal female status post vaginal hysterectomy with anterior and posterior repairs for benign reasons, with normal gynecologic exam. 2. History of osteoporosis by a bone density test done on 05/05/2022. PLAN: 1. Pap smears have been discontinued 2. Self breast awareness was discussed with the patient. We have also discussed symptoms associated with inflammatory breast cancer. 3. Osteoporosis management was discussed. I have stressed the importance of adequate calcium, vitamin D and regular exercise. Recommended amounts of calcium and vitamin D were also discussed. I recommended treatment for osteoporosis with medication such as Fosamax. She understands there are many types of medications that can be used for this. Information on osteoporosis and Fosamax were given to the patient. She will review these and let me know if she is interested in starting medications for her osteoporosis. 4. Mammogram was done on 05/18/2023 and was benign. She will repeat this after 1 year. 5. She was advised to return in one year for her annual well woman exam.
== END ==
LOC: WWCWWP 13:06
PROVIDERS: ATTEND Obstetrics & Gynecology
DX: M81.0 Age-related osteoporosis without current pathological fracture (principal); Z78.0 Asymptomatic menopausal state; Z90.710 Acquired absence of both cervix and uterus; Z88.2 Allergy status to sulfonamides; Z88.8 Allergy status to other drugs, medicaments and biological substances; Z87.891 Personal history of nicotine dependence

== ENCOUNTER → 2024-11-06 | Outpatient (CLI) | payer MEDICARE ==
--- NOTE | 2024-11-06 15:15 | BD ---
EXAMINATION TYPE: Axial Bone Density DATE OF EXAM: 11/06/2024 CLINICAL HISTORY: 69 years old Female. ICD-10 CODE: Z780 POST MAUREEN STATUS, M810 KNOWN OSTEO , Additi onal History: Height: 60 Weight: 140.9 FRAX RISK QUESTIONS: Alcohol (3 or more units per day): no Family History (Parent hip fracture): no Glucocorticoids (More than 3mos): no (Ex: prednisone, prednisolone, methylprednisolone, dexamethasone, and hydrocortisone). History of Fracture in Adulthood: no Secondary Osteoporosis: 1. Type 1 Diabetes: no 2. Hyperthyroidism: no 3. Menopause before 45: no 4. Malnutrition: no 5. Chronic liver disease: no Rheumatoid Arthritis: no Current Tobacco Use: no RISK FACTORS HISTORY OF: Hip Fracture (Right/Left): no Spine Fracture: no History of Wrist Fracture: no Surgery to Spine/Hip(right/left)/Wrist (right/left): Lt Hip Replacement When: 2010 MEDICATIONS: Thyroid Medications: no Osteoporosis Medications: no EXAM MEASUREMENTS: Bone mineral densitometry was performed using the [employer] System. Bone mineral density as measured about the Lumbar spine is: ----- L1-L4(G/cm2): 1..001 T Score Values are as follows: ----- L1: -1.7 ----- L2: -0.4 ----- L3: -2.0 ----- L4: -2.1 ----- L1-L4: -1.5 Z Score Values are as follows: ----- L1: 0.0 ----- L2: 1.3 ----- L3: -0.3 ----- L4: -0.5 ----- L1-L4: 0.2 Bone mineral density has: increased 0.6 % since study of: 05/05/2022 Bone mineral density about the R hip (g/cm2): 0.728 T Score values are as follows: -----R Neck: -2.4 -----R Total: -2.2 Z Score values are as follows: -----R Neck: -0.8 -----R Total: -0.8 Bone mineral density has: increased 6.9 % since study of: 05/05/2022 FRAX%s: The graph provided illustrates a 13.7% chance for a major osteoporotic fx and a 3.1% chance f or the hips probability for fx in 10 years time. IMPRESSION: Osteopenia (T Score between -2.5 and -1). Note that measurements are bordering on osteoporosis at the right hip. There is slightly increased risk of fracture and the patient may be considered for treatment. Re-Screen 2-5 years. NOTE: T-SCORE=SD OF THE YOUNG ADULT MEAN. [facility], , 11/06/2024 3:12 PM
== END | disposition home or self-care (01) ==
LOC: RADBDWWP 13:37
PROVIDERS: ATTEND Obstetrics & Gynecology
DX: M85.89 Other specified disorders of bone density and structure, multiple sites (principal); Z78.0 Asymptomatic menopausal state
CPT/HCPCS: 77080

== ENCOUNTER 2024-11-13 10:51 | Day surgery (SDC) | payer MEDICARE ==
[2024-11-12 08:58] VITALS: BMI 27.7
[2024-11-13] MEDS: IV FLUID CONTINUATION 1,000 ML IV ONE ×2 (11:46→12:25)
[2024-11-13 11:53] VITALS: TEMP 97.8
[2024-11-13] MEDS: LACTATED RINGERS 1,000 ML IV SCH (11:59)
[2024-11-13 12:03] LABS: Glucose,Whole Blood 113 mg/dL (70-110)
[2024-11-13] MEDS ORDERED: PROPOFOL 10 MG/ML 20 ML VIAL IV ONE (12:26)
[2024-11-13] MEDS ORDERED: LIDOCAINE 1% INJ 10MG/ML (20 ML MDV) ONE (12:26)
--- NOTE | 2024-11-13 12:42 | P.PCN ---
Date of Procedure: 11/13/24 Procedure(s) Performed: BRIEF HISTORY: Patient is a 69-year-old, pleasant, white female scheduled for an upper endoscopy as a part evaluation of the history of GERD. Recently has been having worsening chest pain and heartburn and increase omeprazole to 20 mg twice daily and since then the symptoms are gradually improving.. PROCEDURE PERFORMED: Esophagogastroduodenoscopy with biopsy. PREOPERATIVE DIAGNOSIS: Longstanding history of GERD and atypical chest pain. IV sedation per anesthesia. PROCEDURE: After informed consent was obtained, the patient was brought into the endoscopy unit. IV sedation was administered by Anesthesia under continuous monitoring. Initially the Olympus GIF-140 video endoscope was inserted into the mouth. Esophagus intubated without any difficulty. It was gradually advanced into the stomach and duodenum and carefully examined. The bulb and the second part of the duodenum appeared normal. The scope at this time was withdrawn to the stomach, adequately insufflated with air, and upon careful examination, mucosa of the antrum, had mild patchy areas of erythema consistent with gastritis and biopsies were done from this area. Mucosa of the body, cardia and the fundus appeared normal. The scope was then withdrawn into the esophagus. The GE junction was located at 39 cm from the incisors. The esophagus appeared normal. There were no erosions or ulcerations seen, biopsies were done from the distal esophagus and the patient tolerated the procedure well. IMPRESSION: 1. Normal-appearing esophagus with no evidence of esophagitis or Brady's esophagus. 2. Minimal antral gastritis. RECOMMENDATIONS: The findings of this examination were discussed with the byalee finney as well as her family. Follow-up with biopsy results. She was advised to continue with omeprazole 20 mg twice daily and follow antireflux measures..
[2024-11-13 12:50] VITALS: RESP 16
[2024-11-13 13:23] VITALS: BP 151/65; PULSE 66
== END 2024-11-13 13:45 | disposition home or self-care (01) ==
LOC: ORWHC2ENDO 10:51
PROVIDERS: ATTEND Internal Medicine Gastroenterology
DX: K29.50 Unspecified chronic gastritis without bleeding (principal); K21.9 Gastro-esophageal reflux disease without esophagitis; I10 Essential (primary) hypertension; E78.5 Hyperlipidemia, unspecified; I49.3 Ventricular premature depolarization; H44.21 Degenerative myopia, right eye; M19.90 Unspecified osteoarthritis, unspecified site; M81.0 Age-related osteoporosis without current pathological fracture; K58.9 Irritable bowel syndrome, unspecified; Z88.2 Allergy status to sulfonamides; Z88.5 Allergy status to narcotic agent; Z79.899 Other long term (current) drug therapy; Z88.8 Allergy status to other drugs, medicaments and biological substances
CPT/HCPCS: 88305; 43239; J2003; J2704